=== PATIENT | female | born 1995 | race Two or more races ===

== ENCOUNTER 2024-08-01 10:41 | Emergency (ER) | payer MEDICAID, SELFPAY ==
[2024-08-01 10:42] VITALS: BMI 39.4
[2024-08-01 11:07] VITALS: BP 139/97; PULSE 100; RESP 18; TEMP 37.1; O2SAT 97
--- NOTE | 2024-08-01 11:14 | XR_ITS ---
Examination: Complete OB ultrasound, less than 14 weeks, transabdominal Date and time of exam: August 01, 2024 1129 hours INDICATIONS: Pelvic cramping and pain today Technique: Obstetrical ultrasound images less than 14 weeks performed via transabdominal imaging Findings: A normal shaped single intrauterine gestation is present in the uterus. Uterus 9.9 cm, CRL 1.7 cm corresponds to 8 weeks 1 day gestational age Cardiac motion 152 BPM Ultrasonographic survey of visible and placental structures unremarkable. Amniotic fluid volume appears appropriate for this estimated gestational age. Right ovary 3.2 cm arterial flow Left ovary 2.7 cm arterial flow IMPRESSION: Viable intrauterine gestation 8 weeks 1 day.
--- NOTE | 2024-08-01 11:17 | EDNOTE_ITS ---
ED OB Contraction Preg RMI/HPI General Chief complaint: Urogenital-Female Stated complaint: ABD PAIN, + PREG Time Seen by Provider: 08/01/24 11:18 Source: patient Arrival date/time: 08/01/24 10:41 29-year-old female with no known medical history presents to the emergency room with a chief complaint of abdominal pain and cramping. Patient is currently 9 weeks . Patient denies any vaginal bleeding or dysuria Mode of arrival: ambulatory Limitations: no limitations Related Data Allergies Allergy/AdvReac Type Severity Reaction Status Date / Time No Known Allergies Allergy Verified 08/01/24 10:44 Review of Systems Review of Systems Systems Reviewed: All systems reviewed, normal except as documented Constitutional Constitutional: Reports system reviewed and no additional complaints, except as documented, Denies fatigue, Denies fever(s), Denies headache(s) and Denies weakness Eyes Eyes: Reports system reviewed and no additional complaints, except as documented, Denies blurry vision and Denies change in vision ENT Ears, Nose, Mouth, and Throat: Reports system reviewed and no additional complaints, except as documented, Denies otalgia, Denies headache(s), Denies nasal congestion, Denies throat swelling and Denies vertigo Cardiovascular Cardiovascular: Reports system reviewed and no additional complaints, except as documented, Denies chest pain, Denies dyspnea and Denies dyspnea on exertion Respiratory Respiratory: Reports system reviewed and no additional complaints, except as documented, Denies chest congestion, Denies cough, Denies dyspnea, Denies dyspnea on exertion and Denies wheezing Gastrointestinal Gastrointestinal: Reports system reviewed and no additional complaints, except as documented, Reports abdominal pain, Reports cramping, Denies nausea and Denies vomiting Genitourinary Genitourinary: Reports system reviewed and no additional complaints, except as documented Musculoskeletal Musculoskeletal: Reports system reviewed and no additional complaints, except as documented and Denies back pain Integumentary/Breasts Skin/Breast: Reports system reviewed and no additional complaints, except as documented and Denies wounds Neurologic Neurologic: Reports system reviewed and no additional complaints, except as documented, Denies confusion, Denies headache(s), Denies lack of coordination, Denies vertigo and Denies weakness Psychiatric Psychiatric: Reports system reviewed and no additional complaints, except as documented, Denies anxiety, Denies confusion, Denies depression, Denies paranoia, Denies suicidal ideation and Denies tactile hallucinations Endocrine Endocrine: Reports system reviewed and no additional complaints, except as documented and Denies fatigue Hematologic/Lymphatic Hematologic/Lymphatic: Reports system reviewed and no additional complaints, except as documented and Denies lymphadenopathy Allergic/Immunologic Allergic/Immunologic: Reports system reviewed and no additional complaints, except as documented, Denies throat swelling, Denies urticaria and Denies wheezing Past Medical History Social History SMOKING STATUS: Never smoker ED Exam General Limitations: Present no limitations General appearance: Present alert and in no apparent distress Head Head exam: Present atraumatic Eye Eye exam: Present normal appearance, PERRL and EOMI ENT ENT exam: Present normal exam, normal oropharynx and mucous membranes moist Neck Neck exam: Present normal inspection, full ROM and trachea midline Chest Chest inspection: Present normal inspection and symmetric chest wall rise Respiratory Respiratory exam: Present normal lung sounds bilaterally; Absent respiratory distress, wheezes, stridor, accessory muscle use or prolonged expiratory phase Cardiovascular Cardiovascular exam: Present regular rate, normal rhythm and normal heart sounds Abdominal Exam Abdominal exam: Present soft, tenderness and normal bowel sounds Abdominal tenderness: Present suprapubic and mild Extremities Exam Extremities exam: Present normal inspection and full ROM Back Exam Back exam: Present normal inspection and full ROM Neurological Exam Neurological exam: Present alert, oriented X3 and CN II-XII intact Psychiatric Psychiatric exam: Present normal affect and normal mood Skin Skin exam: Present warm, dry, intact and normal color Course Quality Measures none Orders Category Date Time Status US OB <= 14 weeks fetus Stat Exams 08/01/24 11:14 Completed ABO/RH Type Stat Lab 08/01/24 11:58 Completed Beta HCG,Quantitative Stat Lab 08/01/24 11:58 Completed CBC Stat Lab 08/01/24 11:58 Completed CMP [Comprehensive Metabolic Panel] Stat Lab 08/01/24 11:58 Completed UA [Urinalysis] Stat Lab 08/01/24 12:10 Completed Vital Signs Vital signs: Vital Signs Temperature 98.7 F 08/01/24 11:07 Pulse Rate 100 08/01/24 11:07 Respiratory Rate 18 08/01/24 11:07 Blood Pressure 139/97 H 08/01/24 11:07 Pulse Oximetry (%) 97 08/01/24 11:07 Oxygen Delivery Method Room Air 08/01/24 11:07 O2 saturation 97% within normal limits OB/Uterine Contractions MDM Narrative MDM Narrative:: 29-year-old female with no known medical history presents to the emergency room with a chief complaint of abdominal pain and cramping. Patient is currently 9 weeks . Patient denies any vaginal bleeding or dysuria Patient is hemodynamically stable and in no apparent distress. Physical examination shows a soft nontender abdomen with palpation Ultrasound OB was completed and shows a viable intrauterine gestation at 8 weeks and 1 day. Patient has heart tones of 152 bpm CBC CMP and urinalysis are all within normal limits Patient was discharged and educated to follow-up with primary care provider in the next 24 to 48 hours and return to the emergency room for any evidence of worsening signs or symptoms Patient data External records reviewed:: [facility] previous records Clinical information provided by:: patient Social determinants that could affect healthcare access:: none Patient has the following chronic illnesses:: No chronic illness How is presenting disease/condition affected by chronic disease/condition?: no chronic disease Evaluation data The following diagnostics were reviewed and interpreted by me:: lab results and radiology exam(s) Lab and/or radiology exams considered but not ordered:: Labs and radiology exams considered in order Interpretation Summary: OB ultrasound-Findings: A normal shaped single intrauterine gestation is present in the uterus. Uterus 9.9 cm, CRL 1.7 cm corresponds to 8 weeks 1 day gestational age Cardiac motion 152 BPM Ultrasonographic survey of visible and placental structures unremarkable. Amniotic fluid volume appears appropriate for this estimated gestational age. Right ovary 3.2 cm arterial flow Left ovary 2.7 cm arterial flow IMPRESSION: Viable intrauterine gestation 8 weeks 1 day. Medications / Prescriptions Medications or Prescriptions considered but not ordered:: No medication given Medication administrations:: No medication given Consultations Consultation(s) initiated? (list below): No Diagnosis OB Contractions Differential Diagnosis: other (Abdominal pain, ectopic , gastroenteritis, urinary tract infection, threatened ) Most likely diagnosis given after review of the tests above:: Abdominal pain Admission Indicated Admission indicated?: not indicated Explain why admission is indicated or not indicated:: N/A Admission Request Was there a request for admission?: No Disposition Plan Disposition Plan: Discharge Discharge Attestation Discharge Attestation: The patient and all family members were given an opportunity to ask questions and understood the discharge instructions. Discharge instructions specifically effects, indications for sooner follow up or return to the emergency department, and the expected course of current diagnosis. Patient condition: Stable Discharge Plan Plan Patient Disposition: HOME (Self Care) Discharge Disposition comment: Stable Prescriptions/Referrals Referrals: No Primary/Family,Physician [Primary Care Provider] - In 1 week Problem List Clinical Impression: Abdominal cramping affecting Patient/Caregiver Discharge Instructions Education Materials: Abdominal Pain Additional Instructions: Please follow-up with your PUBLIC RELATIONS ASSISTANT in the next 24 to 48 hours The ultrasound was completed and at this time your is in good standing you are currently 8 weeks and 1 day. Your heart tones are at 152 bpm Your blood work and urinalysis were within normal limits For any evidence of worsening signs or symptoms return to the emergency room immediately Print Language: [place] Islander Stand Alone Forms: Rhonda Award Info., Work/School Release, Patient Portal Info Letter PA/[employer] SALES REPRESENTATIVE Supervising Physician PA/[employer] SALES REPRESENTATIVE Supervising Physician: Dr. Arroyo
[2024-08-01 12:18] LABS: Collection Type, Urine Clean Catch
[2024-08-01 12:22] LABS: Basophils % (Auto) 0 % (0-2.5); Eosinophils % (Auto) 0 % (0-10); Hematocrit 38.6 % (36.0-46.0); Hemoglobin 12.8 g/dL (12.0-16.0); Immature Granulocytes % (Auto) 0 % (0-0); Immature Granulocytes Auto 0.03 Thou/mm3 (0.00-0.00); Lymphocytes % (Auto) 20 % (10-50); Mean Corpuscular HGB Conc 33.2 g/dl (31.0-37.0); Mean Corpuscular Hemoglobin 28.6 pg (25.0-35.0); Mean Corpuscular Volume 86 fL (80-100); Monocytes # (Auto) 0.7 Thou/mm3 (0.0-0.8); Monocytes % (Auto) 7 % (0-12); Neutrophils # (Auto) 7.2 Thou/mm3 (1.8-7.7); Neutrophils % (Auto) 72 % (37-80); Nucleated Red Blood Cell % 0 /100 WBC (0); Platelet Count 347 Thou/mm3 (140-440); RDW Standard Deviation 45.7 fL (36.4-46.3); Red Blood Count 4.47 Miln/mm3 (4.00-5.20)
[2024-08-01 12:35] LABS: Bacteria,Urine Rare; Bilirubin,Urine Negative (Negative); Blood,Urine Negative (Negative); Color,Urine Yellow (Lt Yel-Yel); Glucose, Urine Negative (Negative); Ketones,Urine 2+ (Negative); Leukocyte Esterase,Urine Positive (Negative); Nitrite,Urine Negative (Negative); PH,Urine 6.5 (5.0-7.0); Protein,Urine Trace (Neg - Trace); RBC,Urine 8 /hpf (0-3); Specific Gravity,Urine 1.026 (1.001-1.035); Squamous Epithelial Cell,Urine 11 /hpf (0-5); Urobilinogen,Urine Negative mg/dL (0.0-1.0); WBC,Urine 2 /hpf (0-5)
[2024-08-01 12:56] LABS: Clarity,Urine Hazy (Clear/Hazy)
[2024-08-01 13:00] LABS: Alanine Aminotransferase 43 U/L (10-49); Albumin, Serum 4.5 gm/dL (3.5-5.0); Alkaline Phosphatase 59 U/L (46-116); Anion Gap 11 (7-16); BUN/Creatinine Ratio 14 Ratio (12-20); Bilirubin,Total 0.5 mg/dL (0.3-1.2); Blood Urea Nitrogen 7 mg/dL (9-23); Calcium 9.4 mg/dL (8.3-10.6); Calcium (Corrected) 9.4 mg/dL (8.5-10.1); Carbon Dioxide 23.8 mMol/L (20.0-31.0); Chloride 103 mMol/L (98-107); Creatinine (Component) 0.5 mg/dL (0.6-1.3); Estimated Creatinine Clearance 159.2 mL/min (>60); Globulin 2.3 gm/dL (2.3-3.5); Glucose 85 mg/dL (74-106); Osmolality,Calculated 272 (275-295); Potassium 4.4 mMol/L (3.4-5.1); Sodium 138 mMol/L (136-145); Total Protein 6.8 gm/dL (5.7-8.2); eGFR > 60 See Note
[2024-08-01 13:21] LABS: Beta HCG,Quantitative 66286 mIU/mL (<5.0)
== END 2024-08-01 14:38 | disposition home or self-care (01) ==
PROVIDERS: Nurse Practitioner Family; Emergency Provider Family Medicine
DX: O26.891 Other specified pregnancy related conditions, first trimester (principal); R10.2 Pelvic and perineal pain; Z3A.08 8 weeks gestation of pregnancy
CPT/HCPCS: 36415; 76801; 80053; 81001; 84702; 85025; 86900; 86901; 99284

== ENCOUNTER 2024-12-23 00:15 | Observation (INO) | payer MEDICAID, SELFPAY ==
[2024-12-23 00:28] VITALS: BMI 39.9
[2024-12-23 00:31] VITALS: BP 127/77; PULSE 100
[2024-12-23 00:32] VITALS: BP 127/77; PULSE 100; RESP 16; RESP 98; TEMP 36.8
[2024-12-23 01:01] VITALS: BP 118/72; PULSE 93
[2024-12-23 01:31] VITALS: BP 121/75; PULSE 88
== END 2024-12-23 02:05 | disposition home or self-care (01) ==
PROVIDERS: Admitting Provider Obstetrics & Gynecology; Visit Provider Obstetrics & Gynecology
DX: O26.893 Other specified pregnancy related conditions, third trimester (principal); Z3A.29 29 weeks gestation of pregnancy; R10.9 Unspecified abdominal pain
CPT/HCPCS: 59025; 59899

== ENCOUNTER 2025-01-17 08:25 | Outpatient (AMB) | payer MEDICAID, SELFPAY ==
[2025-01-17 08:36] VITALS: BP 125/88; PULSE 95; RESP 18; TEMP 37; O2SAT 95; BMI 40.0
--- NOTE | 2025-01-17 08:36 | AMB.OBINITIA ---
Vital Signs 01/17/25 08:36 Height 1.5 m Height Method Stated Weight 89.981 kg Weight Measurement Method Standing Scale BMI 40.0 BP 125/88 H Blood Pressure Source Automatic Cuff Blood Pressure Location Left Upper Arm Position Sitting Respiration 18 Pulse 95 Pulse Source Monitor Temp 98.6 F Temp Source Temporal Artery Scan Pulse Oximetry (%) 95 Oxygen Delivery Method Room Air Allergies/Home Meds Allergies & Medications Allergies No Known Allergies Allergy (Verified 01/17/25 08:38) Medication Reconciliation aspirin 81 mg tablet 81 mg PO QDAY 12/23/24 [History Confirmed 01/17/25] ferrous sulfate 325 mg (65 mg iron) tablet (Feosol) 325 mg PO QDAY 12/23/24 [History Confirmed 01/17/25] labetalol 100 mg tablet 100 mg PO TID 12/23/24 [History Confirmed 01/17/25] Intake Visit Data Collection New Patient or Established: Established Patient (seen at [facility] within 3 years) Reason for Visit:: OB TRANSFER Seen by Clinical Staff ONLY (RN/MA): No Sugar Presser Required: No Do You Feel Safe at Home: Yes Authorities Contacted: N/A PCP or OBGYN visit in last 3 months: No Hx Now: Yes Are you currently on any form of Control: No Last menstrual period: 05/26/24 Pain Present Currently: No Pain Scale Used: Lilly-Salgado/Numerical Pain scale:: 0 Smoking Status Smoking Status: Never smoker Immunizations Flu Vaccine in the Last 12 Months: No Flu Vaccine Exclusion Criteria: No Exclusion Criteria Questionnaires Covid-19 Vaccine Questionnaire Has patient been vacinated for Covid-19 Have you been vacinated for Covid-19: No PHQ-9 PHQ-2 Over the last 2 weeks, how often have you been bothered by any of the following problems? 1. Little interest or pleasure in doing things: not at all 2. Feeling down, depressed, or hopeless: not at all Total score: 0 PHQ-9 3. Trouble falling or staying asleep, or sleeping too much: Not at all 4. Feeling tired or having little energy: Not at all 5. Poor appetite or overeating: Not at all 6. Feeling bad about yourself - or that you are a failure or have let yourself or your family down: Not at all 7. Trouble concentrating on things, such as reading the newspaper or watching television: Not at all 8. Moving or speaking so slowly that other people could have noticed? - Or the opposite - being so fidgety or restless that you have been moving around a lot more than usual: not at all 9. Thoughts that you would be better off or of hurting yourself in some way: Not at all Total score: 0 If you checked off any problems, how difficult have these problems made it for you to do your work, take care of things at home, or get along with other people?: not difficult at all Source: Developed by Drs. Jesus Stoddard, Justine Márquez, Jair Paulson and colleagues, with an educational jonathan from [employer]. Depression screen completed yes Social History Living Situation History Marital Status: Life Partner Lives With: Family Housing: House Tobacco History Smoking Status: Never smoker Second Hand Smoke Exposure: No Alcohol History Alcohol Intake: Never Domestic Abuse History Do You Feel Safe at Home: Yes History of Present Illness HPI Narrative 29-year-old 3 para 0 for OB. Patient is a transfer from [facility]. She has records present. First visit [facility] was at 13 weeks. First ultrasound was November 13. Patient was October 25, 2024. Patient was 21 weeks 1 and that confirmed EDC. And baby was measuring in the 55th percentile. Patient also had an sono at [facility]. Baby was measuring 23 weeks and 3 days and that also confirmed dates. Patient has a follow-up with [facility] January 25. Denies social habits. Patient had a history of an appendectomy. And a history of chronic hypertension that was diagnosed 4 years ago. She takes labetalol 100 3 times daily. And she monitors her blood pressures at home and patient is AB+, antibody screen negative, RPR nonreactive, rubella, hepatitis B negative, hep C negative, HIV negative, GC and Chlamydia were both negative. Patient had a normal 1 hour gtt. her A1c was 5.4 repeat RPR was also negative and her H&H was 10.7/34.1 and patient is currently taking iron for anemia. And her NIPT screen was negative. OB Initial Visit OB Flowsheet OB Flowsheet Initial Weight: Not Recorded Date <del>?</del> EGA Weight BP Alb Glu CTX Pres Fundal ht FHR Mov Dilation Station Effacement Hx Notes Visit Note 01/17/25 <del>?</del> 33w 5d 89.981 kg 125/88 absent cephalic 33 145 active 29-year-old 3 para 0 for OBI. Transfer from living [facility] with records. Patient is 33 weeks and 5 days. Reports movement. Denies leaking, bleeding, contractions. History of chronic hypertension. She takes labetalol 100 p.o. 3 times daily blood pressures of mild range. She has had no other problems in the . She had her appendectomy out in 2011. Patient has a follow-up ultrasound with maternal- medicine January 25. Taking iron for anemia. Denies any signs symptoms of PIH Keep appointment with maternal- medicine January 25. Schedule weekly NST BPP. Continue labetalol 100 p.o. 3 times daily. Continue iron twice a day. Kick count twice a day. Be vigilant about signs symptoms of preeclampsia. Return in 2 weeks OB check Menstrual History Menstrual reliability: definite Flow: normal Menstrual regularity: regular Monthly: Yes Age at menarche: 12 On control pills at conception: No OB History : 3 Hx Total # of Abortions (Spontaneous & Elective): 2 Infection History & Risk Evaluation History of STDs: none Patient or partner has history of Genital Herpes: No Genetic Screening & History Genetic Screening/Teratology Counseling - Includes patient, baby's father, or anyone in either family with: 1. Patient's age 35 years or older as of estimated date of delivery: No 2. Thalassemia (Albanian, Croatian, Mediterranean, or Background); MCV less than 80: No 3. Neural Tube Defect (Meningomyelocele, Spina Bifida, or Anencephaly): No 4. Congenital Heart Defect: No 5. Down Syndrome: No 6. Everett-Sachs (Ashkenazi Worship, Cajun, Amharic Montserratian): No 7. Joselin Disease (Ashkenazi Worship): No 8. Familial Dysautonomia (Ashkenazi Worship): No 9. Sickle Cell Disease or Trait (): No 10. Hemophilia or other blood disorders: No 11. Muscular Dystrophy: No 12. Cystic Fibrosis: No 13. Hog[place]'s Chorea: No 14. Mental Retardation/Autism: Yes (FATHERS FIRST SON HAS AUTISM) 15. Other inherited genetic or chromosomal disorder: No 16. Maternal Metabolic Disorder (EG,TYPE 1 Diabetes, PKU): No 17. Patient or baby's father had a child with defects not listed above: No 18. Recurrent loss or a stillbirth: No 19. Medications (including supplements, vitamins, herbs or otc drugs)/illicit/recreational drugs/alcohol since last menstrual period: No 20. Any other: No Infection History Other (see comments) Source: [employer] Review of Systems Review of Systems Systems Reviewed: All systems reviewed, normal except as documented Exam General Limitations: no limitations General Appearance: alert, in no apparent distress, comfortable, cooperative, healthy appearing, well developed and well groomed ENT ENT exam: Present normal exam, normal oropharynx and mucous membranes moist Neck Neck exam: Present normal inspection, full ROM and trachea midline Chest Chest inspection: Present normal inspection and symmetric chest wall rise Resp Respiratory exam: Present normal lung sounds bilaterally Card Cardiovascular exam: Present regular rate, normal rhythm and normal heart sounds Abdominal Abdominal exam: Present soft and normal bowel sounds Psych Psychiatric exam: Present normal affect and normal mood Office Procedures OBC Clinic LOC & Office Proc's Nursing/Assessment Patient Status: Established Patient OB Clinic Nursing Assessment: Medication Reconciliation, Update PMH in EMR and Vital Signs OB Clinic Coordination of Care: Complex Care and Chronic Disease 1-5, Education Complex Pt/Fam, Consent,records obtained, informed consent, Lab and Imaging orders, Results/Orders obtained and Staff clarify orders Special Needs: Heart tones Established Patient Charge Established Patient Point Assignment: 140 Established Patient Point Charge: EP Level 4 (120-155) Assessment & Plan Diagnosis / Problem List (1) Encounter for supervision of high risk in third trimester, antepartum: Status: Acute (2) Hypertension affecting , antepartum: Status: Acute (3) Obese: Status: Acute Qualifiers: Obesity type: due to excess calories Plan Discussed labor precautions. Start weekly NST BPP. Kick count twice a day. Patient has a follow-up ultrasound January 27. Continue vitamins. Continue labetalol 100 p.o. 3 times daily. Discussed PIH precautions and signs symptoms. Increase activity and walk. We discussed diet and weight. GBS next visit return in 2 weeks OB check Additional Plan Follow Up: 2 Weeks (obc)
== END 2025-01-17 09:01 | disposition home or self-care (01) ==
LOC: HODSOBC 08:25
PROVIDERS: Supervising Provider Advanced Practice Midwife; Visit Provider Advanced Practice Midwife
DX: O09.893 Supervision of other high risk pregnancies, third trimester (principal); O10.913 Unspecified pre-existing hypertension complicating pregnancy, third trimester; O99.213 Obesity complicating pregnancy, third trimester; Z3A.33 33 weeks gestation of pregnancy; Z79.899 Other long term (current) drug therapy; Z90.49 Acquired absence of other specified parts of digestive tract
CPT/HCPCS: 99214; G0463

== ENCOUNTER 2025-01-29 03:24 | Observation (INO) | payer MEDICAID, SELFPAY ==
[2025-01-29] VITALS (62 sets, daily range): BP systolic 125–156; BP diastolic 78–96; PULSE 82–110; RESP 18–97; TEMP 36.7–36.8; O2SAT 91–99; BMI 41.5
--- NOTE | 2025-01-29 04:18 | XR_ITS ---
Examination: Biophysical profile, ultrasound Date and time of exam: January 29, 2025, 0434 hours INDICATIONS: Labor evaluation, epigastric pain today Technique: Multiple transabdominal sonographic images of the pelvis abdomen obtained. Attention is directed to the breathing movement, gross body movement, amniotic fluid volume and tone. Findings: Amniotic fluid index 7.3 cm Total biophysical profile is 8 of 8. breathing movement is 2. Gross body movement is 2. tone is 2. Qualitative amniotic fluid volume is 2 Impression: Biophysical profile is 8 of 8.
--- NOTE | 2025-01-29 05:34 | PRELIM_ITS ---
Obstetric ultrasound (limited). January 29, 2025 0434 hours Clinical history: Upper epigastric pain that radiates to right side. Findings: There is a gravid uterus with a live fetus. cardiac activity is present at a heart rate of 147beats per minute. Amniotic fluid is adequate (SULY = 7.3cm). Biophysical Profile: Breathing : 2 Tone : 2 Amniotic fluid : 2 Movement : 2 BPP Score : 8/8 Impression: Normal biophysical profile as recorded by the electrophysiology technologist. Report Electronically Signed By: Marvin Morrison 01/29/2025 5:34:34 AM [EST]
[2025-01-29 06:02] LABS: Collection Type, Urine Clean Catch
[2025-01-29 06:05] LABS: Basophils # (Auto) 0.0 Thou/mm3 (0.0-0.2); Basophils % (Auto) 0 % (0-2.5); Eosinophils # (Auto) 0.0 Thou/mm3 (0.0-0.5); Eosinophils % (Auto) 0 % (0-10); Hematocrit 34.9 % (36.0-46.0); Hemoglobin 11.6 g/dL (12.0-16.0); Immature Granulocytes Auto 0.06 Thou/mm3 (0.00-0.00); Lymphocytes # (Auto) 1.5 Thou/mm3 (1.0-4.8); Lymphocytes % (Auto) 15 % (10-50); Mean Corpuscular HGB Conc 33.2 g/dl (31.0-37.0); Mean Corpuscular Hemoglobin 28.0 pg (25.0-35.0); Mean Corpuscular Volume 84 fL (80-100); Monocytes # (Auto) 0.7 Thou/mm3 (0.0-0.8); Monocytes % (Auto) 7 % (0-12); Neutrophils # (Auto) 7.6 Thou/mm3 (1.8-7.7); Neutrophils % (Auto) 77 % (37-80); Nucleated Red Blood Cell # 0.00 Thou/mm3 (0.00-0.00); Nucleated Red Blood Cell % 0 /100 WBC (0); Platelet Count 307 Thou/mm3 (140-440); RDW Standard Deviation 48.2 fL (36.4-46.3); Red Blood Count 4.14 Miln/mm3 (4.00-5.20); White Blood Count 9.8 Thou/mm3 (3.6-11.0)
[2025-01-29 06:41] LABS: Creatinine,Random Urine 62 mg/dL (30-125); Protein Total, Random Urine 24 mg/dL (1-14)
[2025-01-29 06:45] LABS: Alanine Aminotransferase 17 U/L (10-49); Albumin, Serum 3.7 gm/dL (3.5-5.0); Albumin/Globulin Ratio 1.5 (1.2-2.2); Alkaline Phosphatase 119 U/L (46-116); Anion Gap 12 (7-16); Aspartate Amino Transferase 17 U/L (0-34); BUN/Creatinine Ratio 15 Ratio (12-20); Bilirubin,Total 0.3 mg/dL (0.3-1.2); Blood Urea Nitrogen 6 mg/dL (9-23); Calcium 9.1 mg/dL (8.3-10.6); Calcium (Corrected) 9.3 mg/dL (8.5-10.1); Carbon Dioxide 22.4 mMol/L (20.0-31.0); Chloride 105 mMol/L (98-107); Creatinine (Component) 0.4 mg/dL (0.6-1.3); Estimated Creatinine Clearance 205.3 mL/min (>60); Globulin 2.5 gm/dL (2.3-3.5); Glucose 94 mg/dL (74-106); LDH (Lactate Dehydrogenase) 152 U/L (120-246); Osmolality,Calculated 275 (275-295); Potassium 3.8 mMol/L (3.4-5.1); Sodium 139 mMol/L (136-145); Total Protein 6.2 gm/dL (5.7-8.2); Uric Acid 4.0 mg/dL (3.1-7.8); eGFR > 60 See Note
[2025-01-29 07:01] LABS: Fibrinogen 525 mg/dL (175-375); INR 0.9 (0.9-1.3); Partial Thromboplastin Time 25.4 Seconds (22.0-36.0); Prothrombin Time 9.7 Seconds (9.0-12.2)
[2025-01-29 07:19] LABS: Bilirubin,Urine Negative (Negative); Blood,Urine Negative (Negative); Clarity,Urine Turbid (Clear/Hazy); Color,Urine Lt-Yellow (Lt Yel-Yel); Glucose, Urine Negative (Negative); Ketones,Urine Negative (Negative); Leukocyte Esterase,Urine Positive (Negative); Nitrite,Urine Negative (Negative); PH,Urine 6.0 (5.0-7.0); Protein,Urine Trace (Neg - Trace); RBC,Urine 1 /hpf (0-3); Specific Gravity,Urine 1.016 (1.001-1.035); Squamous Epithelial Cell,Urine 24 /hpf (0-5); Urobilinogen,Urine Negative mg/dL (0.0-1.0); WBC,Urine 1 /hpf (0-5)
== END 2025-01-29 07:55 | disposition home or self-care (01) ==
PROVIDERS: Admitting Provider Obstetrics & Gynecology; Visit Provider Obstetrics & Gynecology
DX: O26.893 Other specified pregnancy related conditions, third trimester (principal); Z3A.34 34 weeks gestation of pregnancy; R10.13 Epigastric pain
CPT/HCPCS: 36415; 59025; 59899; 76819; 80053; 81001; 82570; 83615; 84156; 84550; 85025; 85384; 85610; 85730

== ENCOUNTER 2025-01-30 01:52 | Emergency (ER) | payer MEDICAID, SELFPAY ==
[2025-01-30 01:53] VITALS: BMI 41.3
--- NOTE | 2025-01-30 02:02 | EKG_ITS ---
[facility] Test Date: 2025-01-30 Pat Name: STEPHEN VAZQUEZ Department: Room: - Gender: Female Mini Lab Operator: : [id number] Requested By: Vimal Noonan Order Number: [id number] Reading MD: Vimal Noonan Measurements Intervals Roberts Rate: 84 P: 22 TX: 171 QRS: -5 QRSD: 92 T: 28 QT: 361 QTc: 427 Interpretive Statements SINUS RHYTHM VOLTAGE CRITERIA FOR LVH [MEETS CRITERIA IN ONE OF: R(aVL), S(V1), R(V5), R(V5/V6)+S(V1)] No previous ECG available for comparison /store/S0/[id number].pdf
[2025-01-30 02:08] VITALS: BP 157/97; PULSE 84; RESP 19; TEMP 36.9; O2SAT 98
--- NOTE | 2025-01-30 02:12 | XR_ITS ---
Examination: Complete OB ultrasound greater than 14 weeks Date and time of exam: January 30, 2025, 0257 hours INDICATIONS: Epigastric pain chest pain beginning 10:00 p.m. last night Findings: Viable intrauterine single fetus with single amniotic sac presentation cephalic Cardiac motion 160 bpm Placenta fundal anterior grade 3 Umbilical cord insertion seen Amniotic fluid index 14.7 cm Cervix 2.8 cm Right ovary 3.5 cm arterial flow Left ovary obscured by bowel gas. Composite estimated gestational age based on BPD, head circumference, abdominal circumference, femur length is 34 weeks 3 days Estimated weight 2513 g. Survey of intracranial anatomy, spinal anatomy, abdominal anatomy, four-chamber heart performed with no abnormalities identified. Impression: Viable intrauterine gestation cephalic presentation.
--- NOTE | 2025-01-30 02:12 | PD.EDRME ---
Rapid Medical Screening Exam RME Arrival date/time: 01/30/25 01:52 This is a case of 29-year-old female who came into the emergency room due to chest pain today patient is 34 weeks 1 para 0 Chief Complaint: Chest Pain Time Seen by Provider: 01/30/25 01:53 Vital signs: Vital Signs Temperature 98.5 F 01/30/25 02:08 Pulse Rate 84 01/30/25 02:08 Respiratory Rate 19 01/30/25 02:08 Blood Pressure 157/97 H 01/30/25 02:08 Pulse Oximetry (%) 98 01/30/25 02:08 Oxygen Delivery Method Room Air 01/30/25 02:08 Exam: Normal rate regular rhythm no murmur clear breath sounds gravid uterus Clinical Impression: Chest pain in
[2025-01-30 02:41] LABS: Basophils # (Auto) 0.0 Thou/mm3 (0.0-0.2); Basophils % (Auto) 0 % (0-2.5); Eosinophils # (Auto) 0.0 Thou/mm3 (0.0-0.5); Eosinophils % (Auto) 0 % (0-10); Hematocrit 35.1 % (36.0-46.0); Hemoglobin 11.6 g/dL (12.0-16.0); Immature Granulocytes Auto 0.05 Thou/mm3 (0.00-0.00); Lymphocytes # (Auto) 1.4 Thou/mm3 (1.0-4.8); Lymphocytes % (Auto) 13 % (10-50); Mean Corpuscular HGB Conc 33.0 g/dl (31.0-37.0); Mean Corpuscular Hemoglobin 28.2 pg (25.0-35.0); Mean Corpuscular Volume 85 fL (80-100); Monocytes # (Auto) 0.8 Thou/mm3 (0.0-0.8); Monocytes % (Auto) 8 % (0-12); Neutrophils # (Auto) 8.0 Thou/mm3 (1.8-7.7); Neutrophils % (Auto) 78 % (37-80); Nucleated Red Blood Cell # 0.00 Thou/mm3 (0.00-0.00); Nucleated Red Blood Cell % 0 /100 WBC (0); Platelet Count 309 Thou/mm3 (140-440); RDW Standard Deviation 48.5 fL (36.4-46.3); Red Blood Count 4.11 Miln/mm3 (4.00-5.20); White Blood Count 10.3 Thou/mm3 (3.6-11.0)
[2025-01-30 02:51] VITALS: BP 137/98; PULSE 96; RESP 17; TEMP 37.3; O2SAT 97
[2025-01-30 02:54] LABS: B-Type Natriuretic Peptide < 20 pg/mL (0-100)
[2025-01-30 03:08] LABS: Alanine Aminotransferase 47 U/L (10-49); Albumin, Serum 3.9 gm/dL (3.5-5.0); Albumin/Globulin Ratio 1.4 (1.2-2.2); Alkaline Phosphatase 141 U/L (46-116); Anion Gap 11 (7-16); Aspartate Amino Transferase 61 U/L (0-34); BUN/Creatinine Ratio 14 Ratio (12-20); Bilirubin,Total 0.7 mg/dL (0.3-1.2); Blood Urea Nitrogen 7 mg/dL (9-23); Calcium 9.8 mg/dL (8.3-10.6); Calcium (Corrected) 9.9 mg/dL (8.5-10.1); Carbon Dioxide 24.1 mMol/L (20.0-31.0); Chloride 105 mMol/L (98-107); Creatinine (Component) 0.5 mg/dL (0.6-1.3); Estimated Creatinine Clearance 163.9 mL/min (>60); Globulin 2.7 gm/dL (2.3-3.5); Glucose 109 mg/dL (74-106); Osmolality,Calculated 278 (275-295); Potassium 4.1 mMol/L (3.4-5.1); Sodium 140 mMol/L (136-145); Total Protein 6.6 gm/dL (5.7-8.2); Troponin I < 0.002 ng/mL (0.0-0.045); eGFR > 60 See Note
[2025-01-30 03:22] LABS: Collection Type, Urine Voided
--- NOTE | 2025-01-30 03:29 | PD.EDCHEST ---
ED Chest Pain RME/HPI General Chief Complaint: Chest Pain Stated Complaint: CHEST PAIN Time Seen by Provider: 01/30/25 01:53 Arrival date/time: 01/30/25 01:52 RME / HPI RME / HPI narrative: 01/30/25 01:52 This is a case of 29-year-old female who came into the emergency room due to chest pain today patient is [address] Nuñez?s Main ED Evaluation: 29yo female who EGA 30 weeks with sudden onset substernal pain described as burning in nature. Pain has been constant and patient has had no relief with OTC antacids. Patient has pain with deep inspiration and cough. No fever or URI. No LE pain or swelling. PMH includes HTN. PSH includes appendectomy. Social history is unremarkable. NKA. Related Data Home Medications ?Medication ?Instructions ?Recorded ?Confirmed aspirin 81 mg tablet 81 mg PO QDAY 12/23/24 01/29/25 ferrous sulfate 325 mg (65 mg 325 mg PO QDAY 12/23/24 01/29/25 iron) tablet (Feosol) labetalol 100 mg tablet 100 mg PO TID 12/23/24 01/29/25 vits no.130-ferrous fum 1 tab PO QDAY 01/29/25 01/29/25 27 mg iron-folic acid 800 mcg tablet ( Vitamin) Previous Rx's ?Medication ?Instructions ?Recorded acetaminophen 300 mg-codeine 15 mg 1 tab PO Q8H PRN pain #20 tabs 01/30/25 tablet famotidine 20 mg tablet (Pepcid) 20 mg PO QDAY #30 tabs 01/30/25 metoclopramide HCl 5 mg tablet 5 mg PO BID #30 tabs 01/30/25 (Reglan) Allergies Allergy/AdvReac Type Severity Reaction Status Date / Time No Known Allergies Allergy Verified 01/30/25 01:58 Review of Systems Review of Systems Systems Reviewed: All systems reviewed, normal except as documented ED Exam Narrative Physical exam: GENERAL APPEARANCE: alert and oriented x 4, well-developed, well-nourished, apprehensive, no acute distress VITALS: All vitals were reviewed and the pulse ox is 97% on room air, which is normal according to my interpretation. HEENT: Normocephalic, atraumatic; pupils equal, round, reactive to light; EOMI; mucous membranes pink, moist; oropharynx clear NECK: Supple LUNGS: CTABL; no wheezes, no rales, no rhonchi CHEST: No reproducible chest wall tenderness HEART: Mildly tachycardic, regular rhythm; normal S1, S2; no murmurs ABDOMEN: non distended; obese, soft, fundal height at 38cm, marked tenderness to the epigastric and RUQ with positive Coelho sign BACK: no CVA tenderness EXTREMITIES: atraumatic; no edema, no calf tenderness NEUROLOGIC: awake; alert and oriented x4; cranial nerves II-XII grossly intact; no focal sensory or motor deficits PSYCHIATRIC: appropriate mood and affect SKIN: warm, dry, normal color; no rashes Course Quality Measures none Orders Category Date Time Status EKG (ED ONLY) *Do not use* NOW Care 01/30/25 02:02 Completed EKG (ED ONLY) *Do not use* NOW Care 01/30/25 02:12 Completed IV [Insert IV] NOW Care 01/30/25 04:31 Completed EKG (ED Only) Stat Exams 01/30/25 02:02 Draft EKG (ED Only) Stat Exams 01/30/25 02:12 Ordered US OB >= 14 weeks Fetus Stat Exams 01/30/25 02:12 Taken US abdomen limited Stat Exams 01/30/25 03:39 Taken BNP [B-Type Natriuretic Peptide] Stat Lab 01/30/25 02:27 Completed Beta HCG,Quantitative Stat Lab 01/30/25 02:27 Completed CBC Stat Lab 01/30/25 02:27 Completed CMP [Comprehensive Metabolic Panel] Stat Lab 01/30/25 02:27 Completed Troponin I Stat Lab 01/30/25 02:27 Completed Urinalysis Stat Lab 01/30/25 03:18 Completed Famotidine Inj [Pepcid Inj] Med 01/30/25 04:07 Discontinued 20 mg IVP X1 ONE Metoclopramide Inj [Reglan Inj] Med 01/30/25 06:00 Discontinued 5 mg IVP Q8HR Vital Signs Vital signs: Vital Signs Temperature 98.5 F 01/30/25 02:08 Pulse Rate 84 01/30/25 02:08 Respiratory Rate 19 01/30/25 02:08 Blood Pressure 157/97 H 01/30/25 02:08 Pulse Oximetry (%) 98 01/30/25 02:08 Oxygen Delivery Method Room Air 01/30/25 02:08 Chest Pain MDM Narrative MDM Narrative:: Scribe Attestation: 01/30/25 Mame Hawthorne am scribing for and in the presence of Dr. Nuñez. 29yo female who EGA 30 weeks with sudden onset substernal pain described as burning in nature. Pain has been constant and patient has had no relief with OTC antacids. Please see PE findings. Lab markers demonstrated WBC count 10.3, HnH 11/35, Plt count 309. Chemistries demonstrated mildly elevated AST and Alk Phos. Troponin undetected. Patient treated with Pepcid and Reglan with [id number] improvement. Abdominal US demonstrates gallbladder sludge. Given overall clinical presentation, in absence of hypoxia, tachycardia, and tachypnea, will not pursue the diagnosis of PE at this time. Will treat with H2 constantin and analgesic. Will recommend follow-up with PMD for consideration of general surgical evaluation. Patient data External records reviewed:: [facility] previous records (Per chart review, patient was seen here on 08/01/24 for abdominal pain affecting .) Clinical information provided by:: patient Social determinants that could affect healthcare access:: none Patient has the following chronic illnesses:: none How is presenting disease/condition affected by chronic disease/condition?: no chronic disease Evaluation data The following diagnostics were reviewed and interpreted by me:: lab results, radiology exam(s) and EKG tracing(s) Lab and/or radiology exams considered but not ordered:: none Interpretation Summary: EKG done at 0202, rate of 84, no acute pathological ST segment changes, no ectopy, evidence of LVH by voltage criteria, left axis deviation, according to my interpretation. Telerad Preliminary Report Draft Patient: STEPHEN VAZQUEZ. Record#: [id number] Birthdate: 1995 Age/Sex: 29 / F [facility] Attending Dr: Ordering Physician: Date of Service: Procedure(s): Accession Number(s): cc: ~ Obstetric ultrasound. January 30, 2025 at 0257 hours Clinical history: Pelvic pain. Comparison: No prior study is available for comparison. Findings: There is a gravid uterus with a single live fetus in cephalic presentation of mean gestational age 34 weeks and 3 days (by biometry). cardiac activity is present with a heart rate of 160 beats per minute. The placenta is fundal/anterior in location, maturity grade 3. There is no placenta previa or retroplacental hemorrhage. Amniotic fluid is adequate (SULY = 14.7 cm). Estimated weight is 2513 grams ?? 372 grams. Estimated due date is March 10, 2025. Cervical length measures 2.8 cm. Right ovary measures 2.8 x 3.5 x 2.4 cm with arterial flow present. Left ovary is not visualized due to bowel gas. Impression: 1. Single live intrauterine in cephalic presentation, mean gestational age 34 weeks 3 days. 2. Normal cardiac activity and adequate amniotic fluid. 3. Fundal/anterior placenta, grade 3, with no placenta previa. 4. Estimated weight appropriate for gestational age. 5. Right ovary normal; left ovary not visualized due to bowel gas. Report Electronically Signed By: Marvin oMrrison 01/30/2025 4:01:04 Telerad Preliminary Report Draft Patient: STEPHEN VAZQUEZ. Record#: [id number] Birthdate: 1995 Age/Sex: 29 / F Location: [facility] Attending Dr: Ordering Physician: Date of Service: Procedure(s): Accession Number(s): cc: ~ Right upper quadrant abdominal ultrasound. January 30, 2025 0351 hours Clinical history: r/o GB DZ Technique: Grayscale and color flow images of the right upper quadrant are provided. Hepatic and portal veins were also imaged with color flow images. Findings: The liver is normal in echogenicity. No intrahepatic biliary ductal dilatation. Dependent hyperechogenicity is identified within the gallbladder, which may represent sludge.No gallbladder calculus, wall thickening or pericholecystic fluid is demonstrated. The common bile duct is normal in caliber at 2.1 mm. The pancreas is not well visualized. Impression: No evidence of cholecystitis. Gallbladder sludge. Report Electronically Signed By: Marvin Morrison 01/30/2025 4:14:39 AM [EST] Medications / Prescriptions Medications or Prescriptions considered but not ordered:: none Medication administrations:: Medication Administration History Discontinued Medications Famotidine (Famotidine Inj 10 Mg/Ml Vial 2 Ml) 20 mg IVP X1 ONE Stop: 01/30/25 04:08 Last Admin: 01/30/25 04:32 Dose: 20 mg Documented By: VAISHNAVI Metoclopramide HCl (Metoclopramide Inj 5 Mg/Ml Vial 2 Ml) 5 mg IVP Q8HR [facility]; Protocol Stop: 03/01/25 05:59 Last Admin: 01/30/25 06:13 Dose: Not Given Documented By: VAISHNAVI Non-Admin Reason: Patient Refused see above Consultations Consultation(s) initiated? (list below): No Diagnosis Chest Pain Differential Diagnosis: atypical chest pain, costochondritis and other (cholelithiasis, cholecystitis, gastritis, GERD, NSTEMI) Most likely diagnosis given after review of the tests above:: see clinical impression below Admission Indicated Admission indicated?: not indicated Admission Request Was there a request for admission?: No Disposition Plan Disposition Plan: Discharge Discharge Attestation Discharge Attestation: The patient and all family members were given an opportunity to ask questions and understood the discharge instructions. Discharge instructions specifically effects, indications for sooner follow up or return to the emergency department, and the expected course of current diagnosis. Patient condition: Stable Discharge Plan Plan Patient Disposition: HOME (Self Care) Discharge Disposition comment: stable Prescriptions/Referrals Prescriptions/Med Rec: New acetaminophen-codeine 300-15 mg tablet 1 tab PO Q8H MDD 3 tab PRN (Reason: pain) Qty: 20 0RF metoclopramide HCl [Reglan] 5 mg tablet 5 mg PO BID Qty: 30 0RF Rx Instructions: Take 1 tablet 30 before breakfast and 1 tablet 30 minutes before bedtime famotidine [Pepcid] 20 mg tablet 20 mg PO QDAY Qty: 30 0RF No Action labetalol 100 mg tablet 100 mg PO TID aspirin 81 mg tablet 81 mg PO QDAY ferrous sulfate [Feosol] 325 mg (65 mg iron) tablet 325 mg PO QDAY Vitamin 27 mg iron- 800 mcg tablet 1 tab PO QDAY Referrals: Aniket Aguiar MD [Primary Care Provider, Obstetrics] - In 1 week Problem List Clinical Impression: Biliary colic symptom Patient/Caregiver Discharge Instructions Diet Instructions: Low-fat diet. Education Materials: Abdominal Pain Additional Instructions: Medications as directed. Low-fat diet i.e. no added oil, deep-fried foods. Avoid dairy products. Follow-up with primary care doctor for referral for general surgery Print Language: Vietnamese Stand Alone Forms: Rhonda Award Info., Patient Portal Info Letter
[2025-01-30 03:31] LABS: Beta HCG,Quantitative 38702 mIU/mL (<5.0)
--- NOTE | 2025-01-30 03:39 | XR_ITS ---
Examination: Abdomen sonogram, Limited Date and time of exam: January 30, 2025, 0351 hours INDICATIONS: Epigastric pain chest pain beginning 10:00 p.m. last night. Technique: Real-time cabezas scale transabdominal sonographic images of the upper abdomen obtained. Findings: Gallbladder sludge No gallstones Gallbladder wall 0.2 cm Common bile duct 0.3 cm Pancreas obscured by bowel gas Liver 17 cm smooth contour Normal hepatopetal portal venous flow Patent IVC IMPRESSION: Gallbladder sludge Negative for cholelithiasis, negative for cholecystitis
[2025-01-30 03:41] LABS: Amorphous Crystals,Urine Present (Absent); Bacteria,Urine Rare; Bilirubin,Urine Negative (Negative); Blood,Urine Negative (Negative); Clarity,Urine Turbid (Clear/Hazy); Color,Urine Yellow (Lt Yel-Yel); Glucose, Urine Negative (Negative); Ketones,Urine Negative (Negative); Leukocyte Esterase,Urine Negative (Negative); Nitrite,Urine Negative (Negative); PH,Urine 6.5 (5.0-7.0); Protein,Urine Negative (Neg - Trace); RBC,Urine 1 /hpf (0-3); Specific Gravity,Urine 1.012 (1.001-1.035); Squamous Epithelial Cell,Urine 5 /hpf (0-5); Urobilinogen,Urine Negative mg/dL (0.0-1.0); WBC,Urine 2 /hpf (0-5)
--- NOTE | 2025-01-30 04:01 | PRELIM_ITS ---
Obstetric ultrasound. January 30, 2025 at 0257 hours Clinical history: Pelvic pain. Comparison: No prior study is available for comparison. Findings: There is a gravid uterus with a single live fetus in cephalic presentation of mean gestational age 34 weeks and 3 days (by biometry). cardiac activity is present with a heart rate of 160 beats per minute. The placenta is fundal/anterior in location, maturity grade 3. There is no placenta previa or retroplacental hemorrhage. Amniotic fluid is adequate (SULY = 14.7 cm). Estimated weight is 2513 grams ?? 372 grams. Estimated due date is March 10, 2025. Cervical length measures 2.8 cm. Right ovary measures 2.8 x 3.5 x 2.4 cm with arterial flow present. Left ovary is not visualized due to bowel gas. Impression: 1. Single live intrauterine in cephalic presentation, mean gestational age 34 weeks 3 days. 2. Normal cardiac activity and adequate amniotic fluid. 3. Fundal/anterior placenta, grade 3, with no placenta previa. 4. Estimated weight appropriate for gestational age. 5. Right ovary normal; left ovary not visualized due to bowel gas. Report Electronically Signed By: Marvin Morrison 01/30/2025 4:01:04 AM [EST]
--- NOTE | 2025-01-30 04:15 | PRELIM_ITS ---
Right upper quadrant abdominal ultrasound. January 30, 2025 0351 hours Clinical history: r/o GB DZ Technique: Grayscale and color flow images of the right upper quadrant are provided. Hepatic and portal veins were also imaged with color flow images. Findings: The liver is normal in echogenicity. No intrahepatic biliary ductal dilatation. Dependent hyperechogenicity is identified within the gallbladder, which may represent sludge.No gallbladder calculus, wall thickening or pericholecystic fluid is demonstrated. The common bile duct is normal in caliber at 2.1 mm. The pancreas is not well visualized. Impression: No evidence of cholecystitis. Gallbladder sludge. Report Electronically Signed By: Marvin Morrison 01/30/2025 4:14:39 AM [EST]
[2025-01-30 04:31] VITALS: BP 153/97; PULSE 82; RESP 20; TEMP 36.8; O2SAT 99
[2025-01-30] MEDS: FAMOTIDINE INJ 10 MG/ML VIAL 2 ML 20 MG IVP (04:32)
[2025-01-30 06:06] VITALS: BP 163/97; PULSE 92; RESP 18; TEMP 37; O2SAT 99
== END 2025-01-30 06:19 | disposition home or self-care (01) ==
PROVIDERS: Nurse Practitioner Family; Emergency Provider Emergency Medicine; PCP Obstetrics & Gynecology
DX: O26.613 Liver and biliary tract disorders in pregnancy, third trimester (principal); K80.50 Calculus of bile duct without cholangitis or cholecystitis without obstruction; O26.893 Other specified pregnancy related conditions, third trimester; R94.31 Abnormal electrocardiogram [ECG] [EKG]; O10.913 Unspecified pre-existing hypertension complicating pregnancy, third trimester; Z3A.34 34 weeks gestation of pregnancy
CPT/HCPCS: 36415; 76705; 76805; 80053; 81001; 83880; 84484; 84702; 85025; 93005; 96374; 99283; J3490

== ENCOUNTER 2025-02-07 08:30 | Outpatient (RCR) | payer MEDICAID, SELFPAY ==
--- NOTE | 2025-01-31 08:39 | XR_ITS ---
Examination: Biophysical profile, ultrasound Date and time of exam: January 31, 2025, 0843 hours INDICATIONS: Diagnosis -induced hypertension, diagnosis maternal obesity Technique: Multiple transabdominal sonographic images of the pelvis abdomen obtained. Attention is directed to the breathing movement, gross body movement, amniotic fluid volume and tone. Findings: Amniotic fluid index 9.6 cm Total biophysical profile is 8 of 8. breathing movement is 2. Gross body movement is 2. tone is 2. Qualitative amniotic fluid volume is 2 Impression: Biophysical profile is 8 of 8.
[2025-01-31 09:06] VITALS: BP 100/56; PULSE 99; RESP 16; TEMP 36.7
--- NOTE | 2025-02-07 08:38 | XR_ITS ---
Examination: Biophysical profile, ultrasound Date and time of exam: February 07, 2025, 0850 hours INDICATIONS: Diagnosis -induced hypertension, diagnosis maternal obesity Technique: Multiple transabdominal sonographic images of the pelvis abdomen obtained. Attention is directed to the breathing movement, gross body movement, amniotic fluid volume and tone. Findings: Amniotic fluid index 6.8 cm Total biophysical profile is 8 of 8. breathing movement is 2. Gross body movement is 2. tone is 2. Qualitative amniotic fluid volume is 2 Impression: Biophysical profile is 8 of 8.
[2025-02-07 09:02] VITALS: BP 128/78; PULSE 100; RESP 16; TEMP 36.7
== END 2025-02-07 23:59 | disposition home or self-care (01) ==
LOC: S4S1 08:30
PROVIDERS: Referring Provider Advanced Practice Midwife; Visit Provider Advanced Practice Midwife
DX: O16.3 Unspecified maternal hypertension, third trimester (principal); O99.213 Obesity complicating pregnancy, third trimester; E66.9 Obesity, unspecified; O09.93 Supervision of high risk pregnancy, unspecified, third trimester; Z3A.36 36 weeks gestation of pregnancy
CPT/HCPCS: 59025; 76819

== ENCOUNTER 2025-02-11 22:40 | Inpatient (IN) | payer MEDICAID, SELFPAY ==
[2025-02-11 22:45] VITALS: BMI 42.2
[2025-02-11 22:56] VITALS: BP 145/92; PULSE 74; RESP 18; TEMP 36.7
[2025-02-11 23:07] VITALS: BP 161/97; PULSE 76
[2025-02-11 23:13] VITALS: RESP 20; TEMP 36.7
[2025-02-11 23:17] VITALS: BP 143/82; PULSE 73
[2025-02-11 23:30] VITALS: BP 142/77; PULSE 74
[2025-02-11 23:40] VITALS: BP 134/76; PULSE 71
[2025-02-12] VITALS (36 sets, daily range): BP systolic 0–159; BP diastolic 0–99; PULSE 76–113; RESP 16–19; TEMP 36.7–36.8; O2SAT 98
[2025-02-12] MEDS: PANTOPRAZOLE 20 MG TABLET PO
[2025-02-12 00:43] LABS: Basophils # (Auto) 0.0 Thou/mm3 (0.0-0.2); Basophils % (Auto) 0 % (0-2.5); Eosinophils # (Auto) 0.0 Thou/mm3 (0.0-0.5); Eosinophils % (Auto) 0 % (0-10); Hematocrit 33.4 % (36.0-46.0); Hemoglobin 10.8 g/dL (12.0-16.0); Immature Granulocytes Auto 0.04 Thou/mm3 (0.00-0.00); Lymphocytes # (Auto) 1.4 Thou/mm3 (1.0-4.8); Lymphocytes % (Auto) 15 % (10-50); Mean Corpuscular HGB Conc 32.3 g/dl (31.0-37.0); Mean Corpuscular Hemoglobin 27.8 pg (25.0-35.0); Mean Corpuscular Volume 86 fL (80-100); Monocytes # (Auto) 0.9 Thou/mm3 (0.0-0.8); Monocytes % (Auto) 9 % (0-12); Neutrophils # (Auto) 7.4 Thou/mm3 (1.8-7.7); Neutrophils % (Auto) 76 % (37-80); Nucleated Red Blood Cell # 0.00 Thou/mm3 (0.00-0.00); Nucleated Red Blood Cell % 0 /100 WBC (0); Platelet Count 293 Thou/mm3 (140-440); RDW Standard Deviation 49.9 fL (36.4-46.3); Red Blood Count 3.88 Miln/mm3 (4.00-5.20); White Blood Count 9.8 Thou/mm3 (3.6-11.0)
[2025-02-12 00:51] LABS: Creatinine,Random Urine 36 mg/dL (30-125); Protein Total, Random Urine 18 mg/dL (1-14)
[2025-02-12 00:58] LABS: Alanine Aminotransferase 51 U/L (10-49); Albumin, Serum 3.7 gm/dL (3.5-5.0); Albumin/Globulin Ratio 1.6 (1.2-2.2); Alkaline Phosphatase 136 U/L (46-116); Amylase 52 U/L (30-118); Anion Gap 8 (7-16); Aspartate Amino Transferase 62 U/L (0-34); BUN/Creatinine Ratio 12 Ratio (12-20); Bilirubin,Total 0.6 mg/dL (0.3-1.2); Blood Urea Nitrogen 6 mg/dL (9-23); Calcium 8.9 mg/dL (8.3-10.6); Calcium (Corrected) 9.1 mg/dL (8.5-10.1); Carbon Dioxide 22.6 mMol/L (20.0-31.0); Chloride 108 mMol/L (98-107); Creatinine (Component) 0.5 mg/dL (0.6-1.3); Estimated Creatinine Clearance 165.8 mL/min (>60); Globulin 2.3 gm/dL (2.3-3.5); Glucose 128 mg/dL (74-106); Lipase 37 U/L (12-53); Osmolality,Calculated 277 (275-295); Potassium 4.4 mMol/L (3.4-5.1); Sodium 139 mMol/L (136-145); Total Protein 6.0 gm/dL (5.7-8.2); eGFR > 60 See Note
--- NOTE | 2025-02-12 06:33 | PD.LDANTE ---
Documentation for date of: 02/12/25 OB Labor/Induct. HPI History of Present Illness Chief complaint: epigastric pain / h/o chronic hypertension and is on labetalol : 4 Para: 0 Term pregnancies: 0 pregnancies: 0 Living children: 0 History of Abortions: Spontaneous and Elective: 3 History of Vaginal deliveries: 0 History of sections: No History of : No Date of last menstrual period: 05/27/24 SARAH: 03/09/24 Gestational Age (weeks): 37 Gestational Age (days): 3 Gestational age based on last menstrual period: 37 Indication for induction: medical complication History of present illness: 29 years old Ab 3 L0 at 37.3 weeks / she came to L&D with epigastric pain / She is on 200 mgm po Labetalol BID and 100 mgm in the afternoon no blurry vision or headache / she is on pepcid at home / she was given pepcid and pain became better. Evaluation for Pre eclampsia shows a Urine P/Cr ratio of 0.5 / and elevated AST and ALT and platelets are normal / patient kept for observation and repeat laabs in 8 hours / She is already 37 weeks / and IOL recommended / she has initial PNC at [facility] and now with Alicia Boyd CNM and is scheduled for iOL on 02/14/2025. Comments: patient initially kept for observation and now will admit and repeat Labs and also get a complete US/ pelvic exam and start IOL after that History of Present Dating criteria: LMP confirmed by 2nd trimester US Adequate Care: Yes Ultrasounds: normal mid trimester US Obstetrical complications: other Narrative: chronic hypertension with superimposed pre eclampsia / Her epigastric pain resolved with pepcid but AST and ALT are elevated and so plan IOL Labs Maternal Blood Type: AB Pos Review of Systems Review of Systems Systems Reviewed: All systems reviewed, normal except as documented Past Medical History Past Medical History CARDIAC: Positive Hypertension Surgical History SURGICAL: Negative Section Meds Home Medications and Allergies Home Medications ?Medication ?Instructions ?Recorded ?Confirmed ?Type aspirin 81 mg tablet 81 mg PO QDAY 12/23/24 02/11/25 History ferrous sulfate 325 mg (65 mg 325 mg PO QDAY 12/23/24 02/11/25 History iron) tablet (Feosol) labetalol 100 mg tablet 100 mg PO TID 12/23/24 02/11/25 History vits no.130-ferrous fum 1 tab PO QDAY 01/29/25 02/11/25 History 27 mg iron-folic acid 800 mcg tablet ( Vitamin) Allergies Allergy/AdvReac Type Severity Reaction Status Date / Time No Known Allergies Allergy Verified 02/11/25 23:42 OB Exam Physical Exam Vital signs: Temp Pulse Resp BP 98.1 F 96 20 132/79 H 02/11/25 23:13 02/12/25 06:12 02/11/25 23:13 02/12/25 06:12 Narrative: Size equal to dates uterus non tender Occasional/ contractions non tender FHR is category 1 feta presentation is vertex Constitutional Constitutional: no acute distress Routine Respiratory Exam Comments: normal Routine Cardiovascular Exam Cardiovascular: Present RRR Routine Abdominal Exam Abdominal: Present soft Detailed Labor and Delivery Exam Membranes: intact monitor accelerations: 15x15 monitor decelerations: None prison variability: Average (6-10) Tachysystole: No Routine Extremities Exam Extremities: Present full ROM Routine Neurological Exam Neurological: Present alert, oriented X3, CN II-XII intact, moving all extremities, normal tone and normal speech OB Results Labs 02/12/25 00:20 02/12/25 00:20 Labs: Short CBC 02/12/25 Range/Units 00:20 WBC 9.8 (3.6-11.0) Thou/mm3 Hgb 10.8 L (12.0-16.0) g/dL Hct 33.4 L (36.0-46.0) % Plt Count 293 (140-440) Thou/mm3 BMP 02/12/25 00:20 Sodium 139 Potassium 4.4 Chloride 108 H Carbon Dioxide 22.6 BUN 6 L Creatinine 0.5 L Glucose 128 H Calcium 8.9 Liver Function 02/12/25 Range/Units 00:20 Total Bilirubin 0.6 (0.3-1.2) mg/dL AST 62 H (0-34) U/L ALT 51 H (10-49) U/L Alkaline Phosphatase 136 H (46-116) U/L Albumin 3.7 (3.5-5.0) gm/dL OB Assessment & Plan Assessment and Plan (1) Obese: Status: Acute (2) Hypertension affecting , antepartum: Status: Acute (3) Elevated liver enzymes: Status: Acute Additional Plan Additional Plan Comment: Plan admit/ complete ob US/ pelvic exam and IOL. GBS is not available (1) Obese Qualifiers: Obesity type: unspecified obesity type Obesity classification: adult class 3 (BMI >= 40) Serious obesity comorbidity presence: unspecified whether serious comorbidity present Body mass index: BMI 40.0-44.9 Qualified Code(s): E66.813 - Obesity, class 3; Z68.41 - Body mass index [BMI] 40.0-44.9, adult
--- NOTE | 2025-02-12 06:52 | XR_ITS ---
Examination: Complete OB ultrasound greater than 14 weeks Date and time of exam: February 12, 2025, 0750 hours INDICATIONS: Labor induction today, secondary to -induced hypertension Findings: Viable intrauterine single fetus with single amniotic sac presentation cephalic Cardiac motion 147 bpm Placenta maternal right anterior grade 4 Umbilical cord insertion seen Amniotic fluid index 6.9 cm spine maternal left Cervix 3.5 cm Ovaries obscured by bowel gas. Composite estimated gestational age based on BPD, head circumference, abdominal circumference, femur length is 34 weeks 2 days Estimated weight 2437.2 g. Survey of intracranial anatomy, spinal anatomy, abdominal anatomy, four-chamber heart performed with no abnormalities identified. Impression: Viable intrauterine gestation cephalic presentation.
[2025-02-12 08:15] LABS: Basophils # (Auto) 0.0 Thou/mm3 (0.0-0.2); Basophils % (Auto) 0 % (0-2.5); Eosinophils # (Auto) 0.0 Thou/mm3 (0.0-0.5); Eosinophils % (Auto) 0 % (0-10); Hematocrit 35.2 % (36.0-46.0); Hemoglobin 11.6 g/dL (12.0-16.0); Immature Granulocytes Auto 0.05 Thou/mm3 (0.00-0.00); Lymphocytes # (Auto) 1.1 Thou/mm3 (1.0-4.8); Lymphocytes % (Auto) 11 % (10-50); Mean Corpuscular HGB Conc 33.0 g/dl (31.0-37.0); Mean Corpuscular Hemoglobin 27.8 pg (25.0-35.0); Mean Corpuscular Volume 84 fL (80-100); Monocytes # (Auto) 0.8 Thou/mm3 (0.0-0.8); Monocytes % (Auto) 9 % (0-12); Neutrophils # (Auto) 7.8 Thou/mm3 (1.8-7.7); Neutrophils % (Auto) 79 % (37-80); Nucleated Red Blood Cell # 0.00 Thou/mm3 (0.00-0.00); Nucleated Red Blood Cell % 0 /100 WBC (0); Platelet Count 311 Thou/mm3 (140-440); RDW Standard Deviation 48.0 fL (36.4-46.3); Red Blood Count 4.17 Miln/mm3 (4.00-5.20); White Blood Count 9.8 Thou/mm3 (3.6-11.0)
--- NOTE | 2025-02-12 08:26 | ESPR_ITS ---
Documentation for date of: 02/12/25 OB Labor Progress Note Pain Control Pain control: tolerating well Pelvic Exam Effacement (%): 50 station: -3 Amniotic membrane status: Intact Contractions Monitor mode: External Contraction frequency: NONE Status status: Category l Assessment and Plan Assessment: induction ongoing Comments: IOL with Cytotec 50 every 4 hours. History of Present Illness HPI 29 years old Ab 3 L0 at 37.3 weeks / she came to L&D with epigastric pain / She is on 200 mgm po Labetalol BID and 100 mgm in the afternoon no blurry vision or headache / she is on pepcid at home / she was given pepcid and pain became better. Evaluation for Pre eclampsia shows a Urine P/Cr ratio of 0.5 / and elevated AST and ALT and platelets are normal / patient kept for observation and repeat labs in 8 hours / She is already 37 weeks / and IOL recommended / she has initial PNC at [facility] and now with Alicia Boyd CNM. The patient was admitted just before change of shift by Dr. Wolf. Her AST is elevated at 62, ALT elevated at 51. Her urine protein creatinine ratio corresponds to 626 mg in 24 hours. Plan will be for induction of labor. Blood pressures 150s over 80s. Cervix fingertip 50-3. Vertex on ultrasound Plan for Cytotec induction. All questions answered.
[2025-02-12 08:38] LABS: Alanine Aminotransferase 80 U/L (10-49); Albumin, Serum 3.7 gm/dL (3.5-5.0); Albumin/Globulin Ratio 1.4 (1.2-2.2); Alkaline Phosphatase 164 U/L (46-116); Anion Gap 11 (7-16); Aspartate Amino Transferase 78 U/L (0-34); BUN/Creatinine Ratio 18 Ratio (12-20); Bilirubin,Total 1.3 mg/dL (0.3-1.2); Blood Urea Nitrogen 7 mg/dL (9-23); Calcium 9.1 mg/dL (8.3-10.6); Calcium (Corrected) 9.3 mg/dL (8.5-10.1); Carbon Dioxide 19.8 mMol/L (20.0-31.0); Chloride 107 mMol/L (98-107); Creatinine (Component) 0.4 mg/dL (0.6-1.3); Estimated Creatinine Clearance 207.3 mL/min (>60); Globulin 2.7 gm/dL (2.3-3.5); Glucose 81 mg/dL (74-106); Osmolality,Calculated 272 (275-295); Potassium 3.8 mMol/L (3.4-5.1); Sodium 138 mMol/L (136-145); Total Protein 6.4 gm/dL (5.7-8.2); eGFR > 60 See Note
[2025-02-12] MEDS: LABETALOL 100 MG TABLET 200 MG PO ×2 (08:44→21:04)
[2025-02-12 08:52] LABS: Syphilis Nonreactive (Nonreactive)
[2025-02-12] MEDS: PANTOPRAZOLE 40 MG TABLET PO (13:10)
--- NOTE | 2025-02-12 13:20 | ESPR_ITS ---
Documentation for date of: 02/12/25 OB Labor Progress Note Pain Control Pain control: tolerating well Pelvic Exam Dilation (cm): 1 Effacement (%): 60 station: -3 Amniotic membrane status: Intact Contractions Monitor mode: External Contraction frequency: Occasional Contraction intensity: Mild Status status: Category l Assessment and Plan Assessment: induction ongoing Plan OB labor note: continuous present management Comments: Cytotec No. 2 given at 1315 History of Present Illness HPI 29 years old Ab 3 L0 at 37.3 weeks / she came to L&D with epigastric pain / She is on 200 mgm po Labetalol BID and 100 mgm in the afternoon no blurry vision or headache / she is on pepcid at home / she was given pepcid and pain became better. Evaluation for Pre eclampsia shows a Urine P/Cr ratio of 0.5 / and elevated AST and ALT and platelets are normal / patient kept for observation and repeat labs in 8 hours / She is already 37 weeks / and IOL recommended / she has initial PNC at [facility] and now with Alicia Boyd CNM. The patient was admitted just before change of shift by Dr. Wolf. Her AST is elevated at 62, ALT elevated at 51. Her urine protein creatinine ratio corresponds to 626 mg in 24 hours. Plan will be for induction of labor. Blood pressures 150s over 80s. Second cervical exam is now 1 cm 60% -3 posterior on a bedpan. Cytotec 50 mcg #2 given.
[2025-02-12] MEDS: fentaNYL CIT INJ 50 mCg/ML AMP 2ML 100 MCG IVP (21:05)
[2025-02-13] VITALS (154 sets, daily range): BP systolic 0–204; BP diastolic 0–102; PULSE 76–122; RESP 16–28; TEMP 36.9–37.7; O2SAT 82–100
[2025-02-13 00:21] LABS: Rupture of Fetal Membranes Positive (Negative); Swb Mxed in Solvent 1 min? Yes
--- NOTE | 2025-02-13 05:20 | PD.LDPN ---
Documentation for date of: 02/13/25 OB Labor Progress Note Pain Control Pain control: epidural Pelvic Exam Dilation (cm): 3-4 Effacement (%): 70 station: -2 Amniotic membrane status: Ruptured Comments: Clear fluid noted IUPC placed Contractions Monitor mode: External Contraction frequency: 2-4 Contraction intensity: Mild Status status: Category ll Assessment and Plan Assessment: induction ongoing Plan OB labor note: begin Pitocin augmentation History of Present Illness HPI 29 years old Ab 3 L0 at 37.3 weeks / she came to L&D with epigastric pain / She is on 200 mgm po Labetalol BID and 100 mgm in the afternoon no blurry vision or headache / she is on pepcid at home / she was given pepcid and pain became better. Evaluation for Pre eclampsia shows a Urine P/Cr ratio of 0.5 / and elevated AST and ALT and platelets are normal / patient kept for observation and repeat labs in 8 hours / She is already 37 weeks / and IOL recommended / she has initial PNC at [facility] and now with Alicia Boyd CNM. The patient was admitted just before change of shift by Dr. Wolf. Her AST is elevated at 62, ALT elevated at 51. Her urine protein creatinine ratio corresponds to 626 mg in 24 hours. Plan will be for induction of labor. Blood pressures 150s over 80s. Second cervical exam is now 1 cm 60% -3 posterior on a bedpan. Cytotec 50 mcg #2 given. Patient was examined at 0520 in the morning on 02/13/25 and is now 3 to 4 cm dilated. Amniotomy was performed of a forebag and IUPC placed. Clear fluid noted The patient had become leaking fluid at around 2300 Will start Pitocin now. Redraw [facility] labs.
[2025-02-13] MEDS: ACETAMINOPHEN 500 MG TABLET 1000 MG PO (06:42)
[2025-02-13 08:02] LABS: Basophils # (Auto) 0.0 Thou/mm3 (0.0-0.2); Basophils % (Auto) 0 % (0-2.5); Eosinophils # (Auto) 0.0 Thou/mm3 (0.0-0.5); Eosinophils % (Auto) 0 % (0-10); Hematocrit 35.6 % (36.0-46.0); Hemoglobin 12.1 g/dL (12.0-16.0); Immature Granulocytes Auto 0.04 Thou/mm3 (0.00-0.00); Lymphocytes # (Auto) 1.0 Thou/mm3 (1.0-4.8); Lymphocytes % (Auto) 9 % (10-50); Mean Corpuscular HGB Conc 34.0 g/dl (31.0-37.0); Mean Corpuscular Hemoglobin 28.7 pg (25.0-35.0); Mean Corpuscular Volume 84 fL (80-100); Monocytes # (Auto) 0.7 Thou/mm3 (0.0-0.8); Monocytes % (Auto) 6 % (0-12); Neutrophils # (Auto) 9.9 Thou/mm3 (1.8-7.7); Neutrophils % (Auto) 85 % (37-80); Nucleated Red Blood Cell # 0.00 Thou/mm3 (0.00-0.00); Nucleated Red Blood Cell % 0 /100 WBC (0); Platelet Count 295 Thou/mm3 (140-440); RDW Standard Deviation 49.0 fL (36.4-46.3); Red Blood Count 4.22 Miln/mm3 (4.00-5.20); White Blood Count 11.7 Thou/mm3 (3.6-11.0)
[2025-02-13] MEDS: OXYTOCIN in NS 30 units 30 UNIT/500 ML BAG IV (08:14)
[2025-02-13 08:22] LABS: Alanine Aminotransferase 69 U/L (10-49); Albumin, Serum 3.8 gm/dL (3.5-5.0); Albumin/Globulin Ratio 1.4 (1.2-2.2); Alkaline Phosphatase 195 U/L (46-116); Anion Gap 12 (7-16); Aspartate Amino Transferase 49 U/L (0-34); BUN/Creatinine Ratio 10 Ratio (12-20); Bilirubin,Total 1.3 mg/dL (0.3-1.2); Blood Urea Nitrogen < 5 mg/dL (9-23); Calcium 9.5 mg/dL (8.3-10.6); Calcium (Corrected) 9.7 mg/dL (8.5-10.1); Carbon Dioxide 19.6 mMol/L (20.0-31.0); Chloride 106 mMol/L (98-107); Creatinine (Component) 0.5 mg/dL (0.6-1.3); Estimated Creatinine Clearance 165.8 mL/min (>60); Globulin 2.8 gm/dL (2.3-3.5); Glucose 61 mg/dL (74-106); Osmolality,Calculated 270 (275-295); Potassium 3.9 mMol/L (3.4-5.1); Sodium 138 mMol/L (136-145); Total Protein 6.6 gm/dL (5.7-8.2); eGFR > 60 See Note
[2025-02-13] MEDS: ceFAZolin/D5W 2 GM IV 2 GM/100 ML BAG IV (08:57)
[2025-02-13] MEDS: METOCLOPRAMIDE INJ 5 MG/ML VIAL 2 ML 10 MG IVP (08:57)
[2025-02-13] MEDS: FAMOTIDINE INJ 10 MG/ML VIAL 2 ML 20 MG IV (08:57)
[2025-02-13] MEDS: RINGERS LACTATED 1000 ML 1,000 ML 100 ML IV (08:57)
--- NOTE | 2025-02-13 09:56 | PD.GYNPROC ---
Operative Note - HAND SURGEON Procedure Date of procedure: 02/13/25 Procedure Performed: Primary low-transverse section Indication: 29-year-old 4 para 0 with chronic hypertension with superimposed preeclampsia Failed induction of labor Category 2 heart rate tracing Anesthesia type: Spinal Procedure description: Informed consent was obtained and the patient was taken to the operating room.? Identity was confirmed by double identifiers and she was placed on the operating table.? Spinal anesthesia was administered and she was positioned in the supine position.? The abdomen and perineum were prepped in the usual sterile fashion and a Kinsey catheter was placed to continuous drainage.? Sterile drapes were applied.? The incision site was tested for adequacy of anesthesia.? A Pfannenstiel skin incision was made with a scalpel and carried to the subcutaneous fat up to the rectus fascia.? The rectus fascia was incised on either side of the midline and the incisions were extended bilaterally.? The fascia was gently dissected off the ventral surface of the rectus muscle both superiorly and inferiorly.? The rectus bellies were gently in the midline and the peritoneum was identified and entered bluntly using the surgeon's finger.? The peritoneal opening was now stretched to create an adequate opening for access to the uterus.? Kevin O-ring retractor was placed for adequate visualization.? The anterior surface of the uterus was palpated.? The bladder reflection was identified and a Chula Birch low transverse uterine incision was made in the lower uterine segment taking care to avoid the bladder.? Uterine entry was accomplished bluntly and the opening was stretched to create adequate room.? The amniotic membranes were now ruptured and clear amniotic fluid was released.? The fetus was noted to be in the vertex position.? The head was gently elevated out of the maternal pelvis and the rest of the shoulders and body were delivered by gentle fundal pressure.? Umbilical cord was doubly clamped, divided and the was handed over to the waiting team.? Cord gas samples were obtained.? The placenta was delivered by gentle traction on the umbilical cord.? The interior of the uterus was now thoroughly cleaned of all blood and debris and membranes.? The hysterotomy angles were grasped by a pair of Allis clamps and the hysterotomy was closed using 1 Monocryl suture in 2 layers.? The first layer was used to approximate the muscle in a running locked fashion, the second layer was used to approximate the thickness of the myometrium?and uterine serosa in an imbricated manner.? Once the repair was completed the hysterotomy was inspected and noted to be adequately hemostatic.?? The hysterotomy was once again inspected and hemostasis was noted to be satisfactory.? The Kevin retractor was now removed.? The peritoneal edges were re approximated.? The rectus muscles were re approximated.? The rectus fascia was now repaired using 1- PDS stratafix suture in a running fashion.? The subcutaneous layer was now copiously irrigated using warm normal saline.? All bleeding points were cauterized using the Bovie.? The subcutaneous fat was closed using 2-0 Monocryl stratafix.? The skin was closed using 4-0 Monocryl in a subcuticular fashion.? The skin was cleaned and a sterile dressing was applied.? The patient was now undraped, the abdomen and back were thoroughly cleaned and she was transferred to the recovery room in a stable and awake condition.? The patient tolerated the entire procedure well.? No complications were encountered.? All instrument, sponge and lap counts were correct x2. Specimen: other Estimated blood loss (ml): 700 Complications: none Surgical staff Operation Date: 02/13/25 09:15 Case Staff NEGATIVE RETOUCHER: Da Garcia RN First Assistant: Raquel Dumas Diagnosis Discharge Diagnosis (1) Elevated liver enzymes: Status: Acute (2) Encounter for supervision of high risk in third trimester, antepartum: Status: Acute (3) Gestational hypertension: Status: Acute (4) Chronic hypertension with superimposed preeclampsia: Status: Acute Problem List Completed Was Problem List Reviewed/Reconciled?: Yes
--- NOTE | 2025-02-13 11:37 | XR_ITS ---
EXAMINATION: AP chest single view TECHNIQUE: AP portable upright chest single view Date and time: February 13, 2025, 1227 hours INDICATIONS: Tachypnea today. FINDINGS: No significant cardiac enlargement taking into account AP portable projection No pneumonia or pulmonary edema Mild osteopenia IMPRESSION: No active disease
[2025-02-13] MEDS: LABETALOL 100 MG TABLET 200 MG PO ×2 (11:39→20:20)
[2025-02-13] MEDS: KETOROLAC INJ 30 MG/ML VIAL IVP (11:40)
[2025-02-13] MEDS: OXYTOCIN in NS 20 units 20 UNIT/1,000 ML BAG 125 UNIT IV (12:00)
[2025-02-13 14:13] LABS: Basophils # (Auto) 0.0 Thou/mm3 (0.0-0.2); Basophils % (Auto) 0 % (0-2.5); Eosinophils # (Auto) 0.0 Thou/mm3 (0.0-0.5); Eosinophils % (Auto) 0 % (0-10); Hematocrit 31.2 % (36.0-46.0); Hemoglobin 10.5 g/dL (12.0-16.0); Immature Granulocytes Auto 0.04 Thou/mm3 (0.00-0.00); Lymphocytes # (Auto) 0.9 Thou/mm3 (1.0-4.8); Lymphocytes % (Auto) 7 % (10-50); Mean Corpuscular HGB Conc 33.7 g/dl (31.0-37.0); Mean Corpuscular Hemoglobin 28.2 pg (25.0-35.0); Mean Corpuscular Volume 84 fL (80-100); Monocytes # (Auto) 0.8 Thou/mm3 (0.0-0.8); Monocytes % (Auto) 6 % (0-12); Neutrophils # (Auto) 11.2 Thou/mm3 (1.8-7.7); Neutrophils % (Auto) 87 % (37-80); Nucleated Red Blood Cell # 0.00 Thou/mm3 (0.00-0.00); Nucleated Red Blood Cell % 0 /100 WBC (0); Platelet Count 265 Thou/mm3 (140-440); RDW Standard Deviation 48.4 fL (36.4-46.3); Red Blood Count 3.72 Miln/mm3 (4.00-5.20); White Blood Count 12.9 Thou/mm3 (3.6-11.0)
[2025-02-13 14:34] LABS: Alanine Aminotransferase 52 U/L (10-49); Albumin, Serum 3.4 gm/dL (3.5-5.0); Albumin/Globulin Ratio 1.6 (1.2-2.2); Alkaline Phosphatase 164 U/L (46-116); Anion Gap 12 (7-16); Aspartate Amino Transferase 40 U/L (0-34); BUN/Creatinine Ratio 13 Ratio (12-20); Bilirubin,Total 0.9 mg/dL (0.3-1.2); Blood Urea Nitrogen < 5 mg/dL (9-23); Calcium 8.4 mg/dL (8.3-10.6); Calcium (Corrected) 8.9 mg/dL (8.5-10.1); Carbon Dioxide 20.3 mMol/L (20.0-31.0); Chloride 106 mMol/L (98-107); Creatinine (Component) 0.4 mg/dL (0.6-1.3); Estimated Creatinine Clearance 207.3 mL/min (>60); Globulin 2.1 gm/dL (2.3-3.5); Glucose 92 mg/dL (74-106); LDH (Lactate Dehydrogenase) 172 U/L (120-246); Osmolality,Calculated 272 (275-295); Potassium 3.6 mMol/L (3.4-5.1); Sodium 138 mMol/L (136-145); Total Protein 5.5 gm/dL (5.7-8.2); Uric Acid 5.3 mg/dL (3.1-7.8); eGFR > 60 See Note
[2025-02-13 14:37] LABS: Fibrinogen 502 mg/dL (175-375); INR 0.9 (0.9-1.3); Partial Thromboplastin Time 26.8 Seconds (22.0-36.0); Prothrombin Time 9.9 Seconds (9.0-12.2)
--- NOTE | 2025-02-13 16:24 | PD.LDDELS ---
Data ([facility]) Data Hx Section: No : 4 Term: 0 : 0 Livin Abortions: Spontaneous & Theraputic: 3 Delivery Data ([facility]) Labor Data Initiation of labor: Induction Induction/Augmentation Agent: Cytotec-PO and Pitocin ROM date: 02/12/25 ROM time: 23:10 Amniotic membrane rupture type: Spontaneous Amniotic fluid description: Clear Delivery Data [place] delivery date: 02/13/25 [place] delivery time: 09:33 Placenta delivery date: 02/13/25 Placenta delivery time: :34 Delivered by: Trent Santacruz Delivery nurse: NILDA Garza nurse: JUAN RAMON Health Education Aide at delivery: No Support person(s) at delivery: PATIENTS MOTHER Other staff at delivery: SEE INTRAOP CHARTING Delivery Method Delivery method: Low Transverse Presentation: Vertex Anesthesia Type Anesthesia Type: Spinal and Epidural Anesthesia type: Spinal Placenta Placenta delivery description: Manual Removal Cord blood sent to lab: Yes cord blood collection: Cord Blood Type Episiotomy Episiotomy description: None Umbilical Cord cord description: 3 Vessels Data ([facility]reg[facility]) [place] Data order: 1 [place]'s gender: Female Identification band number: [id number] weight (gms): 2480 g Weight (pounds): 5 lbs and 7.5 ozs length: 47.5 cm 1 minute: 8 5 minutes: 9
--- NOTE | 2025-02-13 17:52 | PC.NURSE ---
Called Dr. Santacruz and made aware that patient has had low urine output. Since 12:09 patient has only 125mL of dark frederick urine in [place] catheter. order 1 Liter bolus of LR. [place] to stay in until the morning.
[2025-02-13] MEDS: RINGERS LACTATED 1000 ML 1,000 ML 999 ML IV (17:59)
[2025-02-13] MEDS: SIMETHICONE 80 MG CHEW PO (20:19)
[2025-02-13] MEDS: RINGERS LACTATED 1000 ML 1,000 ML 125 ML IV (20:24)
--- NOTE | 2025-02-13 23:40 | PC.NURSE ---
02/13/251938 Patient provided a breast pump. Education and demonstration provided, all questions answered.
[2025-02-14] VITALS (10 sets, daily range): BP systolic 134–172; BP diastolic 74–90; PULSE 80–100; RESP 18–24; TEMP 36.7–37.6; O2SAT 95–98
[2025-02-14] MEDS: KETOROLAC INJ 30 MG/ML VIAL IVP (00:57)
[2025-02-14 05:42] LABS: Basophils # (Auto) 0.0 Thou/mm3 (0.0-0.2); Basophils % (Auto) 0 % (0-2.5); Eosinophils # (Auto) 0.0 Thou/mm3 (0.0-0.5); Eosinophils % (Auto) 0 % (0-10); Hematocrit 29.1 % (36.0-46.0); Hemoglobin 9.6 g/dL (12.0-16.0); Immature Granulocytes Auto 0.04 Thou/mm3 (0.00-0.00); Lymphocytes # (Auto) 1.4 Thou/mm3 (1.0-4.8); Lymphocytes % (Auto) 14 % (10-50); Mean Corpuscular HGB Conc 33.0 g/dl (31.0-37.0); Mean Corpuscular Hemoglobin 28.1 pg (25.0-35.0); Mean Corpuscular Volume 85 fL (80-100); Monocytes # (Auto) 0.6 Thou/mm3 (0.0-0.8); Monocytes % (Auto) 6 % (0-12); Neutrophils # (Auto) 7.9 Thou/mm3 (1.8-7.7); Neutrophils % (Auto) 80 % (37-80); Nucleated Red Blood Cell # 0.00 Thou/mm3 (0.00-0.00); Nucleated Red Blood Cell % 0 /100 WBC (0); Platelet Count 245 Thou/mm3 (140-440); RDW Standard Deviation 50.2 fL (36.4-46.3); Red Blood Count 3.42 Miln/mm3 (4.00-5.20); White Blood Count 10.0 Thou/mm3 (3.6-11.0)
[2025-02-14] MEDS: LABETALOL 100 MG TABLET 200 MG PO ×3 (08:01→22:52)
[2025-02-14] MEDS: DOCUSATE SOD 100 MG CAPSULE PO (08:55)
[2025-02-14] MEDS: HYDROcodone/APAP 5/325 TABLET 1 TAB PO (09:37)
--- NOTE | 2025-02-14 10:59 | PD.LDPPPRG ---
Subjective Subjective Interval history: Patient has no complaints no Headache or blurry vision or epigastric pain No Chest pain or SOB No Palpitations No Nausea or vomiting or constipation No Back pain No Dysuria no Dizziness no calf pain / independent ambulation She is voiding spontaneously / adequately Passing flatus yes/ BM Lochia average yes Breast/ Bottle feeding Exam Vital Signs Temp Pulse Resp BP Pulse Ox O2 Del Method 98.3 F 93 20 151/90 H 95 Room Air 02/14/25 07:44 02/14/25 08:40 02/14/25 07:44 02/14/25 08:40 02/14/25 08:40 02/14/25 08:40 Narrative Exam alert x3 chest clear CVS RRR NO thyromegaly Uterus is nontender Uterus is firm/ appropriate size Just below the umbilicus Bowel sounds present Abdomen soft no hernias noted/no CVAT Incision CDI No drainage Appropriately tender No calf tenderness Edema mild Objective Labs 02/14/25 05:00 02/13/25 13:35 Labs: Laboratory Results - last 24 hr 02/13/25 02/14/25 13:35 05:00 WBC 12.9 H 10.0 RBC 3.72 L 3.42 L Hgb 10.5 L 9.6 L Hct 31.2 L 29.1 L MCV 84 85 MCH 28.2 28.1 MCHC 33.7 33.0 RDW Std Deviation 48.4 H 50.2 H Plt Count 265 D 245 Neut % (Auto) 87 H 80 Lymph % (Auto) 7 L 14 [place] % (Auto) 6 6 Eos % (Auto) 0 0 Baso % (Auto) 0 0 Neut # (Auto) 11.2 H 7.9 H Lymph # (Auto) 0.9 L 1.4 [place] # (Auto) 0.8 0.6 Eos # (Auto) 0.0 0.0 Baso # (Auto) 0.0 0.0 Immature Gran # (Auto) 0.04 H 0.04 H Absolute Nucleated RBC 0.00 0.00 Immature Gran % 0 0 Nucleated RBC % 0 0 PT 9.9 INR 0.9 APTT 26.8 Fibrinogen 502 H Sodium 138 Potassium 3.6 Chloride 106 Carbon Dioxide 20.3 Anion Gap 12 BUN < 5 L Creatinine 0.4 L Estim Creat Clear Calc 207.3 eGFR > 60 BUN/Creatinine Ratio 13 Glucose 92 D Calculated Osmolality 272 L Uric Acid 5.3 Calcium 8.4 Corrected Calcium 8.9 Total Bilirubin 0.9 AST 40 H ALT 52 H Alkaline Phosphatase 164 H D Lactate Dehydrogenase 172 Total Protein 5.5 L Albumin 3.4 L Globulin 2.1 L Albumin/Globulin Ratio 1.6 Assessment & Plan Problem List (1) Elevated liver enzymes: Problem details: they are trending down / will repeat at postop follow up in the clinic Status: Acute (2) Chronic hypertension with superimposed preeclampsia: Problem details: patient on 200 mgm po BID of labetalol and will continue / likely discharge in am Status: Acute Time Spent With Patient Time: Total time spent is greater than 50% in coordination of care (as documented) at patient's floor/unit and/or counseling patient:
[2025-02-14] MEDS: FAMOTIDINE 20 MG TABLET PO (11:01)
[2025-02-14] MEDS: HYDROcodone/APAP 5/325 TABLET 2 TAB PO (19:28)
[2025-02-14] MEDS: IBUPROFEN TAB 400 MG TABLET 800 MG PO (22:57)
--- NOTE | 2025-02-14 23:23 | XR_ITS ---
EXAMINATION: PA lateral chest 2 views TECHNIQUE: Upright PA lateral chest 2 views Date and time: February 15, 2025, 0004 hours INDICATIONS: Chest pain today. FINDINGS: Minimal prominence left ventricle No pneumonia or pulmonary edema Osseous structures are intact IMPRESSION: No active disease
[2025-02-14 23:57] LABS: Basophils # (Auto) 0.0 Thou/mm3 (0.0-0.2); Basophils % (Auto) 0 % (0-2.5); Eosinophils # (Auto) 0.0 Thou/mm3 (0.0-0.5); Eosinophils % (Auto) 0 % (0-10); Hematocrit 29.6 % (36.0-46.0); Hemoglobin 9.7 g/dL (12.0-16.0); Immature Granulocytes Auto 0.04 Thou/mm3 (0.00-0.00); Lymphocytes # (Auto) 1.5 Thou/mm3 (1.0-4.8); Lymphocytes % (Auto) 13 % (10-50); Mean Corpuscular HGB Conc 32.8 g/dl (31.0-37.0); Mean Corpuscular Hemoglobin 28.1 pg (25.0-35.0); Mean Corpuscular Volume 86 fL (80-100); Monocytes # (Auto) 0.9 Thou/mm3 (0.0-0.8); Monocytes % (Auto) 7 % (0-12); Neutrophils # (Auto) 9.1 Thou/mm3 (1.8-7.7); Neutrophils % (Auto) 79 % (37-80); Nucleated Red Blood Cell # 0.00 Thou/mm3 (0.00-0.00); Nucleated Red Blood Cell % 0 /100 WBC (0); Platelet Count 267 Thou/mm3 (140-440); RDW Standard Deviation 50.0 fL (36.4-46.3); Red Blood Count 3.45 Miln/mm3 (4.00-5.20); White Blood Count 11.5 Thou/mm3 (3.6-11.0)
[2025-02-15 00:14] LABS: Alanine Aminotransferase 46 U/L (10-49); Albumin, Serum 3.4 gm/dL (3.5-5.0); Albumin/Globulin Ratio 1.3 (1.2-2.2); Alkaline Phosphatase 182 U/L (46-116); Anion Gap 9 (7-16); Aspartate Amino Transferase 42 U/L (0-34); BUN/Creatinine Ratio 12 Ratio (12-20); Bilirubin,Total 0.5 mg/dL (0.3-1.2); Blood Urea Nitrogen 7 mg/dL (9-23); Calcium 8.9 mg/dL (8.3-10.6); Calcium (Corrected) 9.4 mg/dL (8.5-10.1); Carbon Dioxide 22.9 mMol/L (20.0-31.0); Chloride 107 mMol/L (98-107); Creatinine (Component) 0.6 mg/dL (0.6-1.3); Estimated Creatinine Clearance 138.2 mL/min (>60); Globulin 2.6 gm/dL (2.3-3.5); Glucose 103 mg/dL (74-106); Osmolality,Calculated 275 (275-295); Potassium 3.7 mMol/L (3.4-5.1); Sodium 139 mMol/L (136-145); Total Protein 6.0 gm/dL (5.7-8.2); eGFR > 60 See Note
--- NOTE | 2025-02-15 02:57 | PC.NURSE ---
02/14/252307 Pt stated that she was having chest pain 8/10 on the pain scale. I further conducted a assessment on the pt and asked for more description of chest pain and when it began, as well as checked the pts vital signs. 2310 charge nurse notified about pt condition. 5 I called MD Wolf to relay pts assessment and vital signs. New orders received for stat CBC, CMP, chest x ray, Protonix 20mg IVP X1 now, 40mg PO Qday scheduled. ordered for me to follow up with the pt condition 30min after the medication was administered. 0040 Called MD Wolf to update on pt condition improving and CBC and CMP results.
[2025-02-15 05:45] VITALS: BP 146/93; PULSE 96; RESP 16; TEMP 36.8; O2SAT 98
[2025-02-15 05:50] VITALS: BP 146/93; PULSE 96
[2025-02-15] MEDS: SIMETHICONE 80 MG CHEW PO (05:50)
[2025-02-15] MEDS: LABETALOL 100 MG TABLET 200 MG PO (05:50)
[2025-02-15 07:55] VITALS: BP 145/91; PULSE 85; RESP 18; TEMP 36.8; O2SAT 98
--- NOTE | 2025-02-15 08:12 | ESPR_ITS ---
Subjective Subjective Interval history: Delivery type: Patient doing well this morning. No acute complaints. Ambulating, tolerating p.o., and voiding without difficulty. HTN/Pre-E screen negative: No CP, SOB, ZAPIEN, visual changes, RUQ pain. : Yes Lochia: diminishing Bowel: Flatus + / BM + UOP: Voiding freely Exam Vital Signs Temp Pulse Resp BP Pulse Ox O2 Del Method 98.2 F 85 18 145/91 H 98 Room Air 02/15/25 07:55 02/15/25 07:55 02/15/25 07:55 02/15/25 07:55 02/15/25 07:55 02/15/25 07:55 Constitutional Constitutional: no acute distress Routine HEENT Exam Head: Present normocephalic and atraumatic Eye: Present EOMI and PERRL ENT: Present mucous membranes moist Routine Neck Exam Neck: Present supple and trachea midline Routine Respiratory Exam Respiratory: Present chest non-tender, lungs clear, normal breath sounds and no resp distress Routine Cardiovascular Exam Cardiovascular: Present RRR Routine Abdominal Exam Abdominal: Present soft and normoactive bowel sounds Routine Extremities Exam Extremities: Present full ROM Routine Skin Exam Skin: Present intact, dry and warm Routine Neurological Exam Neurological: Present alert, oriented X3 and CN II-XII intact Routine Psychiatric Exam Psychiatric: Present normal affect and normal thought process Objective Labs 02/14/25 23:34 02/14/25 23:34 Labs: Laboratory Results - last 24 hr 02/14/25 23:34 WBC 11.5 H RBC 3.45 L Hgb 9.7 L Hct 29.6 L MCV 86 MCH 28.1 MCHC 32.8 RDW Std Deviation 50.0 H Plt Count 267 Neut % (Auto) 79 Lymph % (Auto) 13 [place] % (Auto) 7 Eos % (Auto) 0 Baso % (Auto) 0 Neut # (Auto) 9.1 H Lymph # (Auto) 1.5 [place] # (Auto) 0.9 H Eos # (Auto) 0.0 Baso # (Auto) 0.0 Immature Gran # (Auto) 0.04 H Absolute Nucleated RBC 0.00 Immature Gran % 0 Nucleated RBC % 0 Sodium 139 Potassium 3.7 Chloride 107 Carbon Dioxide 22.9 Anion Gap 9 BUN 7 L Creatinine 0.6 Estim Creat Clear Calc 138.2 eGFR > 60 BUN/Creatinine Ratio 12 Glucose 103 Calculated Osmolality 275 Calcium 8.9 Corrected Calcium 9.4 Total Bilirubin 0.5 AST 42 H ALT 46 Alkaline Phosphatase 182 H Total Protein 6.0 Albumin 3.4 L Globulin 2.6 Albumin/Globulin Ratio 1.3 Assessment & Plan Problem List (1) Elevated liver enzymes: Status: Acute (2) Chronic hypertension with superimposed preeclampsia: Status: Acute (3) delivery delivered: Status: Acute Assessment and plan: PPD/POD#2 1. Continue routine care 2. Transition to PO meds. 3. Encourage to ambulate/ breast-feed 4. Anticipate discharge home today. Time Spent With Patient Time: Total time spent is greater than 50% in coordination of care (as documented) at patient's floor/unit and/or counseling patient:
--- NOTE | 2025-02-15 08:13 | ESDS_ITS ---
DS: Providers Provider Date of admission: 02/12/25 06:45 Primary care physician: Physician No Primary/Family Admitting Provider: Mable Wolf MD Attending Provider on Admission: Trent Santacruz MD Consults: 02/13/25 09:50 Referral Routine Comment: Attending Provider on DC: Trent Santacruz MD Discharging Provider: Trent Santacruz MD DS: Diagnosis Discharge Diagnosis (1) delivery delivered: Status: Acute (2) Chronic hypertension with superimposed preeclampsia: Status: Acute (3) Elevated liver enzymes: Status: Acute Problem List Completed Was Problem List Reviewed/Reconciled?: Yes Summary/Hosp Course Brief History: 29 years old Ab 3 L0 at 37.3 weeks / she came to L&D with epigastric pain / She is on 200 mgm po Labetalol BID and 100 mgm in the afternoon no blurry vision or headache / she is on pepcid at home / she was given pepcid and pain became better. Evaluation for Pre eclampsia shows a Urine P/Cr ratio of 0.5 / and elevated AST and ALT and platelets are normal / patient kept for observation and repeat labs in 8 hours / She is already 37 weeks / and IOL recommended / she has initial PNC at [facility] and now with Alicia Boyd CNM. The patient was admitted just before change of shift by Dr. Wolf. Her AST is elevated at 62, ALT elevated at 51. Her urine protein creatinine ratio corresponds to 626 mg in 24 hours. Plan will be for induction of labor. Blood pressures 150s over 80s. Second cervical exam is now 1 cm 60% -3 posterior on a bedpan. Cytotec 50 mcg #2 given. Patient was examined at 0520 in the morning on 02/13/25 and is now 3 to 4 cm dilated. Amniotomy was performed of a forebag and IUPC placed. Clear fluid noted The patient had become leaking fluid at around 2300 Will start Pitocin now. Redraw [facility] labs. Peripartum Data Delivery Method: Low Transverse Episiotomy Description: None Procedures: Procedures Operation Date: 02/13/25 09:15 Actual Procedure Side Surgeon p in OB Not Applicable Trent Santacruz MD Time Spent with Patient Time attestation: Total time spent providing and/or coordinating discharge services: Exam Vital Signs Temp Pulse Resp BP Pulse Ox O2 Del Method 98.2 F 85 18 145/91 H 98 Room Air 02/15/25 07:55 02/15/25 07:55 02/15/25 07:55 02/15/25 07:55 02/15/25 07:55 02/15/25 07:55 Discharge Plan Plan Patient Disposition: HOME (Self Care) Disposition Comment: BP check in office within 7 days Patient condition on transfer: Stable Prescriptions/Referrals Prescriptions/Med Rec: New labetalol 200 mg tablet 200 mg PO TID 30 Days Qty: 90 1RF hydrocodone-acetaminophen 5-325 mg tablet 1 tab PO Q6H MDD 4 PRN (Reason: pain) 5 Days Qty: 20 0RF docusate sodium [Stool Softener] 100 mg capsule 100 mg PO QDAY 30 Days Qty: 30 0RF ibuprofen 600 mg tablet 600 mg PO Q6H MDD 4 PRN (Reason: fever or pain) 10 Days Qty: 40 0RF Discontinued flu vac ts (6mos up)-PF 45 mcg (15 mcg x 3)/0.5 mL syringe 0.5 ml IM .x1 Qty: 0.5 0RF labetalol 100 mg tablet 100 mg PO TID aspirin 81 mg tablet 81 mg PO QDAY ferrous sulfate [Feosol] 325 mg (65 mg iron) tablet 325 mg PO QDAY Vitamin 27 mg iron- 800 mcg tablet 1 tab PO QDAY acetaminophen-codeine 300-15 mg tablet 1 tab PO Q8H MDD 3 tab PRN (Reason: pain) Qty: 20 0RF metoclopramide HCl [Reglan] 5 mg tablet 5 mg PO BID Qty: 30 0RF Rx Instructions: Take 1 tablet 30 before breakfast and 1 tablet 30 minutes before bedtime famotidine [Pepcid] 20 mg tablet 20 mg PO QDAY Qty: 30 0RF Referrals: Mable Wolf MD [Physician, EMERGENCY PREPAREDNESS MANAGER] No Primary/Family,Physician [Primary Care Provider] Patient/Caregiver Discharge Instructions Discharge Activity: activity as tolerated Education Materials: Understanding Preeclampsia, After Delivery [place] Concerns, After a , C Section Dc, Gestational Hypertension Print Language: Kinyarwanda Stand Alone Forms: Rhonda Award Info., Patient Portal Info Letter, DC from Surgery Discharge Order Discharge Orders: Discharge (Routine); Ordered 02/15/25 Ordered By: Trent Santacruz Planned Discharge Date 02/15/25
[2025-02-15] MEDS: PANTOPRAZOLE 40 MG TABLET PO (08:17)
[2025-02-15] MEDS: DOCUSATE SOD 100 MG CAPSULE PO (08:17)
[2025-02-15] MEDS: FAMOTIDINE 20 MG TABLET PO (08:17)
[2025-02-15] MEDS: HYDROcodone/APAP 5/325 TABLET 2 TAB PO (08:17)
== END 2025-02-15 11:10 | disposition home or self-care (01) | DRG 540 ==
LOC: S4SX 02-13 08:54 → S4NX 02-13 09:22
PROVIDERS: Obstetrics & Gynecology; Admitting Provider Obstetrics & Gynecology; Visit Provider Obstetrics & Gynecology
PROC: 10D00Z1 Extraction of Products of Conception, Low, Open Approach (ICD-10-PCS; CPT 59514; principal; 2025-02-13 09:00)
DX: O10.92 Unspecified pre-existing hypertension complicating childbirth (principal); Z3A.37 37 weeks gestation of pregnancy; Z37.0 Single live birth; O99.214 Obesity complicating childbirth; E66.813 Obesity, class 3; O61.9 Failed induction of labor, unspecified; R74.8 Abnormal levels of other serum enzymes
CPT/HCPCS: 36415; 59899; 71045; 71046; 76805; 80053; 82150; 82570; 83615; 83690; 84112; 84156; 84550; 85025; 85384; 85610; 85730; 86780; 86850; 86900; 86901; A4217; A4314; A4649; J0689; J1885; J2274; J2371; J2470; J2590; J2765; J2795; J3010; J3290; J3490; J7120; A9270; J2270